=== PATIENT | male | born 1945 | race Caucasian/White ===

== ENCOUNTER 2022-08-26 09:39 | Outpatient (CLI) | payer MEDICARE, SELFPAY ==
[2022-08-26 21:53] LABS: Albumin* 4.2 g/dL (3.3-5.0); Chloride* 102 mmol/L (96-114)
[2022-08-26 21:54] LABS: Sodium* 138 mmol/L (135-149)
[2022-08-26 21:56] LABS: Amylase* 45 U/L (18-89); Aspartate Amino Transferase* 22 U/L (12-35); Bilirubin Total* 0.7 mg/dL (0.1-1.5); Carbon Dioxide* 30 mmol/L (20-32)
[2022-08-26 21:57] LABS: Alanine Aminotransferase* 18 U/L (4-50); Alkaline Phosphatase* 66 U/L (40-150); Blood Urea Nitrogen* 18 mg/dL (7-30); Calcium* 10.2 mg/dL (8.4-10.6); Glucose* 100 mg/dL (60-115); Lipase* 133 U/L (23-300)
[2022-08-26 22:12] LABS: Creatinine* 0.7 mg/dL (0.5-1.5); Estimated Glomerular Filt Rate 95 ml/min
== END 2022-08-26 09:40 | disposition home or self-care (01) ==
PROVIDERS: PCP Family Medicine; Visit Provider Family Medicine
DX: R10.9 Unspecified abdominal pain (principal); I10 Essential (primary) hypertension; R73.09 Other abnormal glucose
CPT/HCPCS: 80053; 82150; 83516; 83690

== ENCOUNTER 2023-02-01 09:05 | Outpatient (CLI) | payer MEDICARE, SELFPAY | END 2023-02-01 09:06 | disposition home or self-care (01) | LOC: NFLDREF 02-02 06:18 | PROVIDERS: PCP Family Medicine; Referring Provider Family Medicine; Visit Provider Family Medicine | DX: C61 Malignant neoplasm of prostate (principal); I10 Essential (primary) hypertension; N52.9 Male erectile dysfunction, unspecified; R53.83 Other fatigue; R68.2 Dry mouth, unspecified; R73.03 Prediabetes | CPT/HCPCS: 80053; 80061; 84443 ==

== ENCOUNTER 2023-04-15 10:11 | Outpatient (CLI) | payer MEDICARE, SELFPAY | END 2023-04-15 10:12 | disposition home or self-care (01) | LOC: LKVREF 10:16 | PROVIDERS: PCP Family Medicine; Visit Provider Family Medicine | DX: Z01.818 Encounter for other preprocedural examination (principal) | CPT/HCPCS: 80048 ==

== ENCOUNTER 2024-01-27 13:53 | Outpatient (CLI) | payer MEDICARE, SELFPAY ==
--- OUTSIDE RECORDS SUMMARY | 2024-01-29 07:37 | XMS_ITS ---
Author Organization [facility] Address [address] [place] [address] Care Team Providers Care Miniature Set Constructor Name Role Phone Milan Aguiar MD Primary Care Provider [phone] Active Problems Problem Noted Date Diagnosed Date Kidney stone 03/25/2023 Overview: Added automatically from request for surgery [id number] Benign prostatic hyperplasia with lower urinary tract symptoms 02/03/2021 Overview: Added automatically from request for surgery [id number] Urethral stone 02/03/2021 Overview: Added automatically from request for surgery [id number] Prostate cancer 01/15/2021 Lateral epicondylitis 02/05/2011 Overview: Lateral epicondylitis of elbow Current Oncology Plans No current plan information found. Past Plans SUPPORTIVE CARE Plan Name Start Date Discontinue Date Treatment Medications Discontinue Reason Plan Provider Cycles LEUPROLIDE DEPOT (84D:1) 1 12/28/2021 alteplase (CATHFLO ACTIVASE)hepar inleuprolide (3 month) (LUPRON DEPOT)sodium chloride 0.9% Therapy Complete Piero Castro, KAYLAH 4 of 8 cycles started LEUPROLIDE DEPOT (168D) 1 01/22/2021 leuprolide (6 month) (LUPRON DEPOT) Other Piero Castro, KAYLAH Treatment not started Radiation Treatments * No radiation treatments are documented for this patient in [facility]. Treatments may have been administered in another system.
--- OUTSIDE RECORDS SUMMARY | 2024-01-29 07:37 | XMS_ITS | Encounter Summary ---
Author Organization [facility] Address [address] [place] [address] Care Team Providers Care Form Setter Helper Name Role Phone Milan Aguiar MD Primary Care Provider [phone] Encounter Details Date Type Department Care Team (Late st Contact Info) Description 01/11/2024 E-Visit [facility] Nutrition [address] [place], [place] [id number] [place] [address] Social History Tobacco Use Types Packs/Day Years Used Date Smoking Tobacco: Former Cigarettes Q uit: 2005 Alcohol Use Standard Drinks/Week Comments Yes 1 (1 standard drink = 0.6 oz pur e alcohol) 2 monthly Sex and Gender Information Value Date Recorded Sex Assigned at Not on file Gender Identity Not on file Sexual Orientation Not on file documented as of this encounter Plan of Treatment Not on file documented as of this encounter Visit Diagnoses Not on filedocumented in this encounter Care Teams Form Setter Helper Relationship Specialty Start Date End Date Milan Aguiar MD [address] [place] [address] PCP - General Family Practice 05/02/23 documented as of this encounter
--- OUTSIDE RECORDS SUMMARY | 2024-01-29 07:37 | XMS_ITS | Encounter Summary ---
Author Organization [facility] Address [address] [place] [address] Care Team Providers Care Supervisor Core Drilling Name Role Phone Milan Aguiar MD Primary Care Provider [phone] Encounter Details Date Type Department Care Team (Late st Contact Info) Description 01/17/2024 E-Visit [facility] Nutrition [address] [place], [place] [id number] [place] [address] Social History Tobacco Use Types Packs/Day Years [...] on filedocumented in this encounter Care Teams Supervisor Core Drilling Relationship Specialty Start Date End Date Milan Aguiar MD [address] [place] [address] PCP - General Family Practice 05/02/23 documented as of this encounter
--- OUTSIDE RECORDS SUMMARY | 2024-01-29 07:37 | XMS_ITS | Clinical Summary ---
Author Organization [facility] Address [address] [place] [address] Care Team Providers Care Technical Clerk Name Role Phone Milan Aguiar MD Primary Care Provider [phone] Source Comments You are receiving this document as you are listed as the primary care provider,follow-up provider, or the patient has been referred to you for consultation.This is in compliance with the Medicare and[facility] E[facility] Incentive [facility],which states Providers who transition their patient to another setting of careor provider of care or refers their patient to another provider of care shouldprovide summary care record for each transition of care or referral. [facility] Allergies No known active allergies Medications Medication Sig Dispensed Refills Start Date End Date Status multivitamin with minerals tablet Take 1 Tablet by mouth daily. Active cholecalciferol (VITAMIND3) 50 MCG (2000 UT) tablet Take 1 Tablet (2,000 Units) by mouth daily. Active hydroCHLOROthiazide (ORETIC) 25 MG tablet TAKE ONE TABLET BY MOUTH ONE TIME DAILY 90 Tablet 3 08/12/2022 Active oxyCODONE (ROXICODONE) 5 MG immediate release tablet Take 1 Tablet (5 mg) by mouth every 4 hours as needed for Pain. 10 Tablet 05/05/2023 Active Active Problems Problem Noted Date Diagnosed Date Kidney stone 03/25/2023 Overview: Added automatically from request for surgery [id number] Benign prostatic hyperplasia with lower urinary tract symptoms 02/03/2021 Overview: Added automatically from request for surgery [id number] Urethral stone 02/03/2021 Overview: Added automatically from request for surgery [id number] Prostate cancer 01/15/2021 Lateral epicondylitis 02/05/2011 Overview: Lateral epicondylitis of elbow Encounters Date Type Department Care Team Description 01/17/2024 7:30 AM CDT Telemedicine [facility] Nutrition [address] [place] [address] Allyssa Lawson RDN, LD Nutritional counseling (Primary Dx); Prostate cancer (HRC) 01/17/2024 E-Visit [facility] Nutrition [address] [place] [address] Mychart, Generic Provider 01/11/2024 E-Visit [facility] Nutrition [address] [place] [address] Mychart, Generic Provider 01/05/2024 9:30 AM CDT Telemedicine [facility] Oncology [address] [place] [address] Piero Castro MBBS Prostate cancer (HRC) (Primary Dx); History of cytopenia 01/02/2024 8:00 AM CDT Lab Visit [facility] [address] [place] [phone] Kidney stone (Primary Dx); Hypercalciuria; Prostate cancer (HRC) 12/21/2023 Telephone [facility] - Urology [address] [facility] [place] [address] Aleksandra Richey MD Follow-up, NOS 11/14/2023 10:10 AM CDT Ancillary Procedure [facility] [address] Radiology [address] [place] [address] Erin Brown APRN, CNP Kidney stone 11/14/2023 9:45 AM CDT Office Visit [facility] [address] [address]rology [address] [place] [address] Erin Brown APRN, CNP Kidney stone (Primary Dx); Hypercalciuria from Last 3 Months Family History Medical History Relation Name Comments Cancer, Prostate Father Cancer, Prostate Paternal Grandmother Relation Name Status Comments Father Paternal Grandmother Social History Tobacco Use Types Packs/Day Years Used Date Smoking Tobacco: Former Cigarettes Q uit: 2004 Tobacco Cessation:Counseling Given: Not Answered Alcohol Use Standard Drinks/Week Comments Yes 1 (1 standard drink = 0.6 oz pur e alcohol) 2 monthly Sex and Gender Information Value Date Recorded Sex Assigned at Not on file Gender Identity Not on file Sexual Orientation Not on file Last Filed Vital Signs Vital Sign Reading Time Taken Comments Blood Pressure 136/81 09/09/2023 10:59 AM PATCHER HELPER Pulse 70 09/09/2023 10:59 AM PATCHER HELPER Temperature 36.4 ??C (97.6 ??F) 09/09/2023 1 0:59 AM PATCHER HELPER Respiratory Rate 13 05/02/2023 4:30 PM CDT Oxygen Saturation 95% 05/02/2023 5:0 0 PM CDT Inhaled Oxygen Concentration - - Weight 79.4 kg (175 lb) 01/17/2024 8:16 AM CDT wt taken at home today Height 180.3 cm (5' 10.98) 05/02/2023 11:55 AM CDT Body Mass Index 24.42 05/02/2023 11:55 AM CDT Plan of Treatment Health Maintenance Due Date Last Done Comments Hep C Screening (Preventive Services) 1945 Medicare Annual Wellness Visit 1945 COVID-19 Vaccine ( season) 2023 11/27/2021, 04/27/2021, 09/16/2020, Additional history exists Influenza (#1) 2024 07/02/2021, 05/08/2019 DTaP/Tdap/Td (3 - Tdap) 12/02/2031 12/01/2021, 05/21 HepA Aged Out 06/14/2012 No longer eligi ble based on patient's age to complete this topic Pneumococcal 65+ Yrs Completed 11/11/2015, 08/27/19 15 Zoster/Shingles Completed 05/08/2019, 08/2018, 09/27/2013 HepB Aged Out No longer eligi ble based on patient's age to complete this topic Hib Aged Out No longer eligi ble based on patient's age to complete this topic IPV (Polio) Aged Out No longer eligi ble based on patient's age to complete this topic MCV4 Aged Out No longer eligi ble based on patient's age to complete this topic Medical Devices Implanted Type Area Minister Device Identifier Shelf Expiration Date Model / Serial / Lot Stent Ureteral Inlay 6fr 28cm - [id number] Implanted:Qty: 1 on 05/02/2023 by Aleksandra Richey MD at [facility] DEVICE Left: [employer] 09/06/2027 [id number] / / [id number] Description:URETERAL STENT Procedures Procedure Name Priority Date/Time Associated Diagnosis Comments URINE CONTAINER, 24 HOUR Routine 01/02/2024 11:16 AM CDT Kidney stone Hypercalciuria CONTAINER TEST Routine 01/02/2024 11:16 AM CDT Kidney stone Hypercalciuria COMPLETE BLOOD COUNT-W/DIFF STAT 01/02/2024 7:56 AM CDT Prostate cancer (HRC) PROSTATIC SPECIFIC ANTIGEN (DIAGNOSTIC F/U) STAT 01/02/2024 7:56 AM CDT Prostate cancer (HRC) CBC AND DIFFERENTIAL PANEL STAT 01/02/2024 7:56 AM CDT Prostate cancer (HRC) XR ABD FLAT/KUB 1 VIEW Routine 11/14/2023 10:21 AM CDT Kidney stone from Last 3 Months Results * Urine Container, 24 Hour (01/02/2024 11:16 AM CDT) Container Given Done 01/02/2024 1:00 PM [facility] Other Specimen Type 01/02/2024 11:16 AM CDT 01/02/2024 11:16 AM CDT Erin Brown APRN, CNP LAB_1 [facility] [address] [place] [address], [facility] * (ABNORMAL) Complete Blood Count-W/Diff (01/02/2024 7:56 AM CDT) WBC 4.3 3.5 - 10.5 x10(9)/L 01/02/2024 8:05 AM [facility] RBC 5.17 4.32 - 5.72 x10(12)/L 01/02/2024 8:05 AM [facility] Hemoglobin 15.4 13.5 - 17.5 g/dL 01/02/2024 8:05 AM [facility] HCT 46.9 38.8 - 50.0 % 01/02/2024 8:05 AM [facility] MCV 90.7 80.0 - 100.0 fL 01/02/2024 8:05 AM [facility] MCH 29.8 27.6 - 33.3 pg 01/02/2024 8:05 AM [facility] MCHC 32.8 31.5 - 35.2 g/dL 01/02/2024 8:05 AM [facility] RDW 13.6 11.9 - 15.5 % 01/02/2024 8:05 AM [facility] Platelets 166 150 - 450 x10(9)/L 01/02/2024 8:05 AM [facility] Automated NRBC 0 <=0 /100 WBC 01/02/2024 8:05 AM [facility] Neutrophil Absolute 2.9 1.7 - 7.0 10(9)/L 01/02/2024 8:05 AM [facility] Lymphocyte Absolute 0.8(L) 1.0 - 4.8 10(9)/L 01/02/2024 8:05 AM [facility] Monocyte Absolute 0.4 0.2 - 0.9 10(9)/L 01/02/2024 8:05 AM CDT [facility] Eosinophil Absolute 0.1 0.0 - 0.5 10(9)/L 01/02/2024 8:05 AM CDT [facility] Basophil Absolute 0.0 0.0 - 0.3 10(9)/L 01/02/2024 8:05 AM CDT [facility] Immature Granulocyte % 0.2 0.0 - 0.5 % 01/02/2024 8:05 AM CDT [facility] Blood Venipuncture / Unknown 01/02/2024 7:56 AM CDT 01/02/2024 7:59 AM CDT Piero Adela Castro [facility] LAB_1 Performing Organization Address [facility]/ZIP Co de Phone Number [facility] [address] [place] [address] * Prostatic Specific Antigen (Diagnostic F/U) (01/02/2024 7:56 AM CDT) Prostatic Specific Antigen 0.6 0.0 - 4.0 ng/mL 01/02/2024 3:07 PM CDT [facility] Blood Venipuncture / Unknown 01/02/2024 7:56 AM CDT 01/02/2024 7:59 AM CDT Narrative [facility] - 01/02/2024 3:07 PM CDT The [employer] PSA Chemiluminescent immunoassay is used. Results obtained with different test methods or kits cannot be used interchangeably. Piero Castro [facility]_1 Performing Organization Address City/[facility]/ZIP Co de Phone Number [facility] [address] [place] [address], [facility] * XR Abd Flat/KUB 1 View (11/14/2023 10:21 AM CDT) Anatomical Region Laterality Modality Abdomen Digital Radiogra phy 11/14/2023 10:1 5 AM CDT Impressions 11/14/2023 11:21 AM CDT COMPARISON: ??05/10/2023 FINDINGS: ??No renal or ureteral calculus is identified although small calculi could be obscured by overlying colonic stool. Unchanged pelvic phleboliths. Nonobstructive bowel gas pattern. Moderate to large volume of colonic stool. Narrative Procedure Note Rashad العراقي MD - 11/14/2023 IMPRESSION COMPARISON: 05/10/2023 FINDINGS: No renal or ureteral calculus is identified although smallcalculi could be obscured by overlying colonic stool. Unchanged pelvicphleboliths. Nonobstructive bowel gas pattern. Moderate to large volume ofcolonic stool. Erin Brown APRN, DEPARTMENT EDITOR RAD GD from Last 3 Months Advance Directives * Full Code (Latest Code Status on File) Date Activated Date Inactivated Comments 03/16/2021 1:12 PM 03/17/2021 4:00 PM Care Teams Technical Clerk Relationship Specialty Start Date End Date Milan Aguiar MD [address] [place] [address] PCP - General Family Practice 05/02/23
--- OUTSIDE RECORDS SUMMARY | 2024-01-29 07:37 | XMS_ITS | Encounter Summary ---
Author Organization [facility] Address [address] [place] [address] Care Team Providers Care Clam Grader Name Role Phone Thierry Pearce MD Primary Care Provide r Thierry Pearce MD Unavailable Reason for Visit * Reason Onset Date Comments Forms 12/02/2017 Encounter Details Date Type Department Care Team (Late st Contact Info) Description 12/02/2017 Telephone [facility] [address] [place] [address] Thierry Pearce MD [address] , [id number] [place] [address] [phone] Forms Social History Tobacco Use Types Packs/Day Years Used Date Smoking Tobacco: Former Cigarettes Smokeless Tobacco: Never Alcohol Use Standard Drinks/Week Comments Yes 5.8 (1 standard drink = 0.6 oz p ure alcohol) Sex and Gender Information Value Date Recorded Sex Assigned at Not on file Gender Identity Not on file Sexual Orientation Not on file documented as of this encounter Miscellaneous Notes * Telephone Encounter - Thierry Pearce MD - 12/02/2017 11:30 AM CDT done * Telephone Encounter - Risa Salinas CMA - 12/02/2017 11:19 AM CDT We received some forms from [facility] in [place] for PT initial examination that need vineet reviewed, signed, and faxed back. They are in your pod, please review. Thank you documented in this encounter Plan of Treatment Not on file documented as of this encounter Visit Diagnoses Not on filedocumented in this encounter Additional Health Concerns Infection Onset Date Last Indicated Resolved Time Rule Out COVID-19 01/10/2020 01/10/2020 01/11/2020 7:25 PM CDT documented as of this encounter Care Teams Clam Grader Relationship Specialty Start Date End Date Thierry Pearce MD [address] , [address] [address] PCP - General Family Practice 01/23/16 Thierry Pearce MD [address], [address] [address] Assigned PCP 01/25/16 documented as of this encounter
--- OUTSIDE RECORDS SUMMARY | 2024-01-29 07:37 | XMS_ITS | Continuity of Care Document ---
Author Organization [facility] Address [address] [address] [place] [address] Phone Care Team Providers Care Practice Representative Name Role Phone Benjamin Gaspar MD Unavailable Unavailable Allergies, Adverse Reactions, Alerts Substance Reaction Status Criticality No Known Allergies Active No Inform ation Medications Medication Instructions Dosage Effective Dates (start - stop) Status Comments hydrochlorothiazide 25 mg tablet take 1 tablet by oral route every day 25 MG - Active VITAMIN D3 (unknown strength) take by Oral route every for 1 day Not Available - Active Multivitamin unknown Oral - Active Procedures Procedure Date Offic/outpt E&m Estab Mod-hi 2 24 Biofeedback Biofeedback Each Add 15 Min Biofeedback Biofeedback Each Add 15 Min Biofeedback Biofeedback Each Add 15 Min Offic/outpt E&m Estab Low-mod Anorectal Manometry Rectal Sensation Test Colonoscopy Flex; W/remov Les- 24 Colonoscopy Flex; W/bx 1/mx Level Iv-surg Path Gross/micro 24 cancelled appt Offic/outpt E&m Estab Mod-hi 2 24 Established Level 4 Offic/outpt E&m Estab Low-mod 3 Offic/outpt E&m Estab Mod-hi 2 23 Colonoscopy Flex; W/remov Les- 20 Level Iv-surg Path Gross/micro 20 Ugi Endo; W/bx 1/mx Level Iv-surg Path Gross/micro 18 Offic/outpt E&m Estab Low-mod 8 Offic/outpt E&m Estab Mod-hi 2 18 Adenoma(s), Other Neoplasm Detected Duri ng Screen Colonoscopy Flex; W/remov Les- 17 Colonoscopy Flex; W/bx 1/mx Level Iv-surg Path Gross/micro 17 Colonoscopy Flex; W/remov Les- 15 Colonoscopy Flex; W/bx 1/mx Level Iv-surg Path Gross/micro 15 Advance Directives Directive Yes / No Effective Date File Name No Information Encounters Encounter Description Practice Location Reason(s) For Visit Diagnoses Date Provider Providers Copied on Encounter [facility], [address] [address], [place], [id number], [place] tel:[phone] [facility] Dyssynergic defecation 4 Hubert Alexander. [address] [place] [address], [id number], [place]. tel:[phone] Offic/outpt E&m Estab Mod-hi 2 [facility], [address] [address], [place], [id number], [place] tel:[phone] [facility] Previous History Review (chief complaint) Comment (chief complaint) Dyssynergic defecation 4 Hubert Alexander. [address] [place] [address], [id number], [place]. tel:[phone] Referring Provider: Referral Self, USE FOR SELF REFERRALS. [facility], [address] [address], [place], [id number], [place] tel:[phone] [facility] Other constipation Apr-0 4 Decelles PA Nallely. [address] [facility], [place], [place], [id number], [place]. tel:[phone] Referring Provider: Referral Self, USE FOR SELF REFERRALS. [facility], [address] [address], [place], [id number], [place] tel:[phone] [facility] Oth symptoms and signs involving the dgstv sys and abdomen 4 Decelles PA Nallely. [address] [facility], [place] [address], [place], [id number], [place]. tel:[phone] Referring Provider: Referral Self, USE FOR SELF REFERRALS. [facility], [address] [address], [place], [id number], [place] tel:[phone] [facility] Ot symptoms and signs involving the dgstv sys and abdomen 4 Decelles PA Nallely. [address] [facility], [place] [address], [place], [id number], [place]. tel:[phone] Referring Provider: Referral Self, USE FOR SELF REFERRALS. Offic/outpt E&m Estab Low-mod [facility], [address] [address], [place], [id number], [place] tel:[phone] [facility] GI Symptoms or Concerns (chief complaint) Chronic constipationDyss ynergic defecation 4 Decelles PA Nallely. [address] [facility], [place], [place], [id number], [place]. tel:[phone] Referring Provider: Referral Self, USE FOR SELF REFERRALS. [facility], [address] [address], [place], [id number], [place] tel:[phone] [facility] Ot symptoms and signs involving the dgstv sys and abdomen Aug- 4 Mc Morales. [address] [facility], [place] [address], [place], [id number], [place]. tel:[phone] Referring Provider: Referral Self, USE FOR SELF REFERRALS. [facility], [address] [address], [place], [id number], [place] tel:[phone] [facility] Colorectal polyp detected on colonoscopyHemor rhoids, internalConstipa tion, unspecifiedBenig n neoplasm of ascending colonBenign neoplasm of transverse colon 4 Eber Aguilar. [address] [place] [address], [id number], [place]. tel:[phone] Referring Provider: Referral Self, USE FOR SELF REFERRALS. [facility], [address] [address], [place], [id number], [place] tel:[phone] [facility] GI Symptoms or Concerns (chief complaint) No Information 4 Hubert Alexander. [address] [place] [address], [id number], [place]. tel:[phone] Referring Provider: Referral Self, USE FOR SELF REFERRALS. Offic/outpt E&m Estab Mod-hi 2 [facility], [address] [address], [place], [place], [id number], [place] tel:[phone] [facility] GI Symptoms or Concerns (chief complaint) Change in bowel habitUnspecified constipationHist ory of adenomatous polyp of colon 4 Hubert Alexander. [address] [place] [address], [id number], [place]. tel:[phone] Referring Provider: Referral Self, USE FOR SELF REFERRALS. Established Level 4 [facility], [address] [address], [place], [id number], [place] tel:[phone] [facility] GI Symptoms or Concerns (chief complaint) Chronic constipation 3 Daniela Patel. [address] [place] [address], [address], [id number], [place]. tel:[phone] Referring Provider: Referral Self, USE FOR SELF REFERRALS. [facility], [address] [address], [place], [id number], [place] tel:[phone] [facility] No Information 3 Alfredo Bernstein. [address] [facility], [address], [id number], [place]. tel:[phone] Offic/outpt E&m Estab Low-mod [facility], [address] [address], [place], [place], [id number], [place] tel:[phone] [facility] GI Symptoms or Concerns (chief complaint) Chronic constipationIrre gular bowel habits 3 Dec[place] HALIE Browning. [address] [facility], [facility] [address], [place], [id number], [place]. tel:[phone] Referring Provider: Referral Self, USE FOR SELF REFERRALS. Offic/outpt E&m Estab Mod-hi 2 [facility], [address] [address], [place], [place], [id number], [place] tel:[phone] [facility] GI Symptoms or Concerns (chief complaint) Periumbilical abdominal pain Feb-0 3 Hubert Alexander. [address] [facility], [address], [id number], [place]. tel:[phone] Referring Provider: Referral Self, USE FOR SELF REFERRALS. [facility], [address] [address], [place], [place], [id number], [place] tel:[phone] No Information 0 3 No Information Referring Provider: Milan Aguiar MD, [address] [place] [address], [address]. tel:[phone] [facility], [address] [address], [place], [place], [id number], [place] tel:[phone] [facility] Colorectal polyp detected on colonoscopyHemor attila internalEncmarcelae r for screening for malignant neoplasm of colonBenign neoplasm of ascending colon 0 Eber Aguilar. [address] [facility], [address], [id number], [place]. tel:[phone] Referring Provider: Thierry taylor, [address], [place], [address]. tel:[phone] [facility], [address] [address], [place], [place], [id number], [place] tel:[phone] [facility] No Information 0 Eber Aguilar. [address] [place] [address], [address], [id number], [place]. tel:[phone] [facility], [address] [address], [place], [place], [id number], [place] tel:[phone] [facility] Epigastric painGERD with esophagitisGastr o-esophageal reflux disease with esophagitisEpiga stric pain Dec-0 8 Eber Aguilar. [address] [place] [address], [address], [id number], [place]. tel:[phone] Referring Provider: Referral Self, USE FOR SELF REFERRALS. Offic/outpt E&m Estab Low-mod [facility], [address] [address], [place], [place], [id number], [place] tel:[phone] [facility] GI Symptoms or Concerns (chief complaint) Epigastric painDietary counseling and surveillance Sep-2 8 Eber Aguilar. [address] [facility], [address], [id number], [place]. tel:[phone] Referring Provider: Referral Self, USE FOR SELF REFERRALS. Offic/outpt E&m Estab Mod-hi 2 [facility], [address] [address], [place], [place], [id number], [place] tel:[phone] [facility] GI Symptoms or Concerns (chief complaint) Lower abdominal pain November-3 8 Ellen King. [address] [facility], [facility] [address], [place], [place], [id number], [place]. tel:[phone] Referring Provider: Thierry Pearce MD, [address], [place], [address]. tel:[phone] [facility], [address] [address], [place], [id number], tel:[phone] [facility] Polyp of colonDiverticulo sis of colon without diverticulitisIn ternal hemorrhoidEncoun ter for screening for malignant neoplasm of colonPersonal history of colonic polypsBenign neoplasm of ascending colonBenign neoplasm of rectumBenign neoplasm of rectumBenign neoplasm of ascending colonPersonal history of colonic polyps 7 Eber Aguilar. [address], [id number], . tel:[phone] Referring Provider: Referral Self, USE FOR SELF REFERRALS. [facility], [address] [address], [place], [id number], tel:[phone] [facility] Right lower quadrant painColon polypInternal hemorrhoidChange in bowel habitBenign neoplasm of ascending colonOther hemorrhoidsRight lower quadrant painBenign neoplasm of ascending colon 5 Eber Aguilar. [address] [facility] [address], [place], [id number], [place]. tel:[phone] Referring Provider: Woody Loo MD, [address], [address]. tel:[phone] Family History Family Member Type Diagnosis Age At Onset Mother Problem (finding) Daughter Problem (finding) Crohn's disease Father Problem (finding) prostate cancer Son Problem (finding) Alive and well Sister Problem (finding) Cancer, lung Daughter Problem (finding) Alive and well Father Problem (finding) malignant neoplasm of l yariel Sister Problem (finding) Alive and well Father Problem (finding) Colon polyps Immunizations Vaccine Date Status Comments tetanus toxoid, reduced diphtheria toxoid, and acellular pertussis vaccine, adsorbed administered Note: CARMEN tejeda i-directional interface ; Source: Other Registry SARS-COV-2 (COVID-19) vaccin e, mRNA, spike protein, LNP, preservative free, 30 mcg/0.3mL dose, conner-sucrose formulation administered Note: JAH Thurston bi- directional interface ; Source: Other Registry influenza, high-dose seasona l, quadrivalent, 0.7mL dose, preservative free administered Note: [facility] bi-direct ional interface ; Source: Other Registry influenza, high-dose seasona l, quadrivalent, .7mL dose, preservative free administered Note: [facility] bi-direct ional interface ; Source: Other Registry SARS-COV-2 (COVID-19) vaccin e, mRNA, spike protein, LNP, preservative free, 30 mcg/0.3mL dose administered Note: [facility] bi-direct ional interface ; Source: Other Registry SARS-COV-2 (COVID-19) vaccin e, mRNA, spike protein, LNP, preservative free, 30 mcg/0.3mL dose administered Note: [facility] bi-direct ional interface ; Source: Other Registry SARS-COV-2 (COVID-19) vaccin e, mRNA, spike protein, LNP, preservative free, 30 mcg/0.3mL dose administered Note: [facility] bi-direct ional interface ; Source: Other Registry influenza, high dose seasona l, preservative-free administered Note: [facility] bi-direct ional interface ; Source: Other Registry zoster vaccine recombinant administered N ote: [facility] bi-directional interface ; Source: Other Registry zoster vaccine recombinant administered N ote: [facility] bi-directional interface ; Source: Other Registry Pneumovax 23 administered Note: [facility] bi-d irectional interface ; Source: Other Registry Prevnar 13 administered Note: [facility] bi-d irectional interface ; Source: Other Registry zoster vaccine, live administered Note: [facility] bi-directional interface ; Source: Other Registry Havrix administered Note: [facility] bi-d irectional interface ; Source: Other Registry tetanus toxoid, reduced diphtheria toxoid, and acellular pertussis vaccine, adsorbed administered Note: [facility] b i-directional interface ; Source: Other Registry Payers Payer name Insurance type Covered republican ID Authoriza tion(s) Blue [employer] Medicare Advantage [id number] Social History Type Description Quantity Date Captured Comments Alcohol Use Details Unknown Caffeine Use Details Unknown Tobacco Use Status No Information Smoking Status No Information Sex Male Chief Complaint And Reason For Visit No Information Reason For Referral Reason For Referral No Information Plan Of Treatment Date Type Action Status Goal Lifestyle education regardin g diet completed Referral Ordered: Biofeedback Appointment date/timeframe: First Available ordered Referral Ordered: Anorectal manometry Appointment date/timeframe: 09/22/2023 ordered Referral Ordered: EGD Appointment date/timeframe: 06/29/2018 ordered History Of Present Illness Encounter Date Complaint History Of Prese nt Illness Previous History Review Javier jewell a pleasant 78-year-old male presents for evaluation of constipation. In review, patient has been dealing with consiptaion over the last six months. He previously was doing well on increasing psyllium, water, and exercise. He also tried acupuncture which seemed to help significantly. To evaluate his change in bowel habits, he underwent a colonoscopy on 08/19/2023 which revealed multiple colon polyps and internal hemorrhoids. Biopsies revealed one sessile serrated adenoma, four tubular adenomas, two hyperplastic polyps. It was recommended he repeat a colonoscopy in 3 years. Patient then underwent anorectal manometry which revealed abnormal anorectal manometry. 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 Resting and squeeze pressures were normal and rectal sensation was normal. Biofeedback was recommended. He has a history of small bowel obstruction requiring surgery, history of prostate cancer and radiation, and appendectomy. Previous abdominal x-ray showed excessive stool throughout the colon. Comment This is a 78-yea r-old male with a history of pelvic floor dysfunction, constipation. He has been undergoing biofeedback that has been improving his bowel movements, but he does not quite get it yet. He can sense the relaxation of the anal sphincter somewhat, but not very well yet. He continues on MiraLax once a day. With this, he is having typically bowel movements once per day. Sometimes, he will feel like he has incomplete bowel movements and might have up to 3 bowel movements on that day. He wonders about stopping the MiraLax. Continues to have a lot of gas. He intermittently gets abdominal discomfort. Taking the peppermint helps a little bit. He continues on a high-fiber diet. If he does get abdominal discomfort, having a bowel movement or passing flatus helps. GI Symptoms or Concerns Javier cronin s a pleasant 77-year-old male presents for evaluation of constipation. In review, patient has been dealing with consiptaion over the last six months. He previously was doing well on increasing psyllium, water, and exercise. He also tried acupuncture which seemed to help significantly. He reports having to strain a lot to have a bowel movement. He was also having a lot of foul-smelling gas. In May, he started having pencil thin stools and a sensation of stool in his rectum that was not evacuating. He tried Dulcolax, MiraLax, and senna which each helped a little bit. In June he was doing better and having regular bowel movements, but again developed problems with constipation. To evaluate his change in bowel habits, he underwent a colonoscopy on 08/19/2023 which revealed multiple colon polyps and internal hemorrhoids. Biopsies revealed one sessile serrated adenoma, four tubular adenomas, two hyperplastic polyps. It was recommended he repeat a colonoscopy in 3 years. Patient then underwent anorectal manometry which revealed abnormal anorectal manometry. 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 Resting and squeeze pressures were normal and rectal sensation was normal. Biofeedback was recommended. He has a history of small bowel obstruction requiring surgery, history of prostate cancer and radiation, and appendectomy. Previous abdominal x-ray showed excessive stool throughout the colon. GI Symptoms or Concerns GI Symptoms or Concerns This is a 77-year-old male with a history of adenomatous colon polyps who has had a change in his bowel habits with relative constipation over the last 3 or 4 months. The patient had seen Dr. Suarez 06/30/2023. At that time, he was doing well on increasing psyllium, water, exercise. He had also had acupuncture and that seemed to help significantly.Previously, he was straining a lot with bowel movements, but still having regular bowel movements. He was having a lot of foul-smelling gas. Since May, he was having pencil thin stools and a sensation that stool in his rectum that he was not evacuating. He tried Dulcolax, MiraLax, senna, each helped a little bit. In May when he had acupuncture that seemed to help significantly the next day. In June when he was seeing Dr. Suarez, he was better, having regular bowel movements. But then he had issues with constipation more recently after that. He tried acupuncture again, which maybe helped a little, not much. GI Symptoms or Concerns This is a 77-year-old male with a past medical history of prostate cancer status post radiation, small-bowel obstruction undergoing surgical therapy likely secondary to adhesions in 2019, kidney stones, appendectomy at the age of [age] years old having large scar who comes in for follow up of constipation. This was a virtual appointment. Patient describes that since last appointment with 1 of our Advanced care providers he has completely normalized bowel movements with 1 bowel movement a day that is well formed with feeling of complete evacuation. Patient has done this with consuming significant amounts of water, psyllium supplementation, MiraLax every other day as well as acupuncture. Patient will also be attempting in the next few days to weeks myofascial massage over the scar where he is had previous appendectomy. Otherwise patient denies any other GI symptoms. GI Symptoms or Concerns Javier cronin s a pleasant 77-year-old male who presents for evaluation of constipation. Records reviewed for this visit include 05/02/2023 x-ray abdomen. In review, he was previously seen in August 2022 for intermittent periumbilical abdominal pain thought to possibly related to adhesions. It was recommended he trial IBGard or peppermint tea. His last colonoscopy was completed in 09/21/2019. Colonoscopy revealed internal hemorrhoids and one polyp. Polyp was a tubular adenoma negative for high-grade dysplasia. It was recommended he repeat a colonoscopy in 5 years.Recently on 05/02/2023 he had a preoperative X-ray completed prior to kidney stone removal. X-ray revealed a large amount of stool throughout the colon with a nonobstructive bowel gas pattern.Today he presents to discuss constipation. Over the last two months, he has noticed having to strain more often. He typically has a small hard bowel movement every day. He endorses sensation of incomplete emptying and decreased anorectal sensation. He feels like he is not effectively having a bowel movement. He visited with his primary care provider who told him to increase his water intake and start Metamucil. He had initial improvement on Metamucil, but after a few weeks reverted back to having harder bowel movements and needing to strain. He reports drinking plenty of fluids. He has also done a trial of daily MiraLax, which he did not find helpful at improving stool regularity. He denies any fever, chills, unintentional weight loss, hematochezia, melena, abdominal pain or decreased appetite. He has noticed an increase in gas. Past medical and surgical history is significant for prostate cancer s/p radiation therapy, kidney stones, small bowel obstruction requiring surgery, and appendectomy. Family history is significant for a daughter with Crohn's disease. No family history of colon cancer. GI Symptoms or Concerns This is a 76-year-old male with a history of appendectomy, small bowel obstruction requiring surgery, prostate cancer, who comes in for abdominal pain. He has had this pain intermittently for potentially over decades. This might last for a month or two and then go away for months and then potentially recur. This occurred recently. This was felt in the periumbilical area. This is an ache sensation that fluctuated. It might be there in the morning, better in the afternoon. It did not seem to change with eating or a bowel movement. The pain did not radiate. It was not associated with other symptoms.He has been having regularly formed bowel movements, occasionally loose. Typically, they are Nebo type 4, sometimes Nebo type 2 or 5. Typically, 2 bowel movements per day. No blood in the stools, no narrowed stools. No weight loss, no night sweats. Previously, he had seen Dr. Velázquez for these symptoms and was tried on MiraLax, which did not change his symptoms. When the GI Symptoms or Concerns Javier moy is a 72-year-old male with a history of advanced colon polyps and a history of greater than 10 years of intermittent periumbilical and epigastric abdominal pain. He has no clear triggers and he will have months where he is symptom free and then he will have spells lasting weeks or months where he will have essentially daily intermittent pain. Surgical history is significant for previous appendectomy with an open incision. It is also noteworthy that his daughter has Crohn's disease that is quite severe. He does have a history of rather significant diarrhea and abdominal pain in his 30s that did sort of wean with time. Today, he is feeling well with no acute symptoms. He has no fevers, chills, night sweats, or weight loss.He also notes frequent heartburn with no associated symptoms. He is a male over the age of 49 with frequent heartburn, but does not have a previous endoscopy that has ever been done. GI Symptoms or Concerns Mr. Darrikc guerin is here with abdominal pain of several years duration. The pain comes and goes, and can be present for a week or 2, and then go away for the same time. He is not bothered so much by the discomfort that he has to stop what he is doing. When he is distracted, he does not feel it. The ache is in a large area and probably focused just below the umbilicus. It does not seem to be related to any particular food or even the eating. He has tried a variety of different diets that have not made a difference. He has had 2 colonoscopies during this period that have shown only polyps. He also had a CT scan of the abdomen that is unremarkable. He otherwise feels healthy. He does note that his stools are a little different than they used to be. They are not quite as formed and regular. He is not sure that getting cleaned out for a colonoscopy changes his symptoms. Functional Status Date Functional Assessmen t No Information Instructions Date Instruction Additional Infor casey Pelvic Floor Dysfunction Related to Dyssynergic defecation Colon Polyps Related to Color ectal polyp detected on colonoscopy -- As we discussed i n the virtual clinic appointments you have completely optimized bowel movements therefore would not recommend any further diagnostic testing or any prescription for constipation at this time-- I would recommend continuing with the significant water intake, fiber intake to 20-30 grams of fiber a day with using psyllium supplementation, MiraLax once a day or every other day-- continue with lifestyle measures of substantial breakfast in the morning, hot beverage in the morning and exercise in the morning as that can help stimulate bowel motions-- other things that you can you you can increase MiraLax to twice a day. Can also use senna tablets [id number] 1-2 pills at night as a stimulant laxative. These will be 8.6 milligram tablets-- continue with acupuncture and it will be safe to consider myofascial scar massage-- we will follow up as needed as we discussed Related to Chronic constipation Constipation Bowel Cleanse (adul t) Related to Irregular bowel habits Colon Cancer Prevention Related to Colorectal polyp detected on colonoscopy Colon Polyps Related to Color ectal polyp detected on colonoscopy Hemorrhoids Related to Color ectal polyp detected on colonoscopy Lifestyle education regarding di et Related to Dietary counseling and surveillance Hemorrhoids Related to Colon polyp Colon Cancer Prevention Related to Colon polyp Colon Polyps Related to Colon polyp Assessments Type Assessment Date assessment Dyssynergic defecation 24 Patient Care Teams Name Effective Dates (start - stop) Status Members No Information
--- OUTSIDE RECORDS SUMMARY | 2024-01-29 07:37 | XMS_ITS | Encounter Summary ---
Author Organization [place] Address [address] [place] [address] Care Team Providers Care Tar Heater Name Role Phone Thierry Pearce MD Primary Care Provide r Thierry Pearce MD Unavailable [phone] Encounter Details Date Type Department Care Team (Late st Contact Info) Description 12/07/2021 [facility] [address] [address] Debi Larsen Social History Tobacco Use Types Packs/Day Years Used Date Smoking Tobacco: Former Cigarettes Smokeless Tobacco: Never Alcohol Use Standard Drinks/Week Comments Yes 5.8 (1 standard drink = 0.6 oz p ure alcohol) AUDIT-C Answer Date Recorded Q1: How often do you have a drink containing alc ohol? 2-3 times a week 10/21/2020 Q2: How many drinks containi ng alcohol do you have on a typical day when you are drinking? 1 or 2 10/21/2020 Q3: How often do you have si x or more drinks on one occasion? Never 10/21/2020 PHQ-2 Answer Date Recorded PHQ-2 Score 0 10/21/2020 Sex and Gender Information Value Date Recorded Sex Assigned at Not on file Gender Identity Not on file Sexual Orientation Not on file documented as of this encounter Plan of Treatment Not on file documented as of this encounter Visit Diagnoses Not on filedocumented in this encounter Care Teams Tar Heater Relationship Specialty Start Date End Date Thierry Pearce MD [address], [id number] [place] [address] PCP - General Family Practice 01/23/16 Thierry Pearce MD [address], [id number] [place] [address] Assigned PCP 01/25/16 documented as of this encounter
--- OUTSIDE RECORDS SUMMARY | 2024-01-29 07:37 | XMS_ITS | Encounter Summary ---
Author Organization [place] Address [address] [place] [address] Care Team Providers Care School Guidance Counselor Name Role Phone Woody Loo MD Primary Care Provider Marzena vailable Thierry Pearce MD Primary Care Provide r Thierry Pearce MD Unavailable [phone] Encounter Details Date Type Department Care Team (Late st Contact Info) Description 07/12/2011 My[facility] Medical Advice [facility] [address] [place] [address] Woody Loo MD XXXX RESIGNED/INACTIVE XXXX Social History Tobacco Use Types Packs/Day Years Used Date Smoking Tobacco: Former Cigarettes Smokeless Tobacco: Never Comments:2 years ago Alcohol Use Standard Drinks/Week Comments Yes 5.8 (1 standard drink = 0.6 oz p ure alcohol) social Sex and Gender Information Value Date Recorded [...] documented as of this encounter Care Teams School Guidance Counselor Relationship Specialty Start Date End Date Woody Loo MD XXXX RESIGNED/INACTIVE XXXX PCP - General 08/07/9901/21 Thierry Pearce MD [address], [id number] [place] [address] PCP - General Family Practice 01/23/16 Thierry Pearce MD [address], [id number] [place] [address] Assigned PCP 01/25/16 documented as of this encounter
--- OUTSIDE RECORDS SUMMARY | 2024-01-29 07:37 | XMS_ITS | Encounter Summary ---
Author Organization [place] Address [address] [place] [address] Care Team Providers Care Warehouse Worker Name Role Phone Woody Loo MD Primary Care Provider Marzena vailable Thierry Pearce MD Primary Care Provide r Thierry Pearce MD Unavailable [phone] Encounter Details Date Type Department Care Team (Late st Contact Info) Description 10/06/2011 MyC Medical Advice [facility] [address] [place] [address] Debi Larsen Social History Tobacco Use Types [...] encounter Miscellaneous Notes * Telephone Encounter - Ly Lyman - 10/08/2011 1:32 PM CDT MY CHART message sent to patient to call & schedule his appt. * Telephone Encounter - Woody Loo MD - 10/08/2011 12:45 PM CDT Glad to help, will see if Ly has any input for me, but sounds like a good idea * Telephone Encounter - Lauren Bone - 10/06/2011 2:30 PM CDTFrom: ELIZABETH CARSON To: Woody Loo MD Sent: TueOct 06, 2011 2:18 PM Subject: Urologist Dear Dr. Loo, I seem to be having trouble finding an urologist. You recommended Dr Inocencio Duarte at the . of . However, when I called they said he only specialized in the reconstruction of ???.?? and they assigned me to Dr. Lee. On that appointment I visited with another young doctor (resident?) for a long time before Dr. Lee arrived, and my visit with him was very brief. Total appointment time was almost 3 hours, and the atmosphere was chaotic. So I???m not interesting in returning. 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 Alec Jean at [facility] () because he seems to understand PN and had referred a number of patients to Dr. Mccloud. Can you refer me to Dr. Jean? My history with is first with Dr. Andrews who I very much liked, then assigned to Dr. Hampton afterDr. Andrews retired. I Left Dr. Hampton, because he never explained anything, although I thought he was a good Dr. and then went to Dr. Bach, who resigned as my urologist because of my bad behavior. Regards, Selvin Carson documented in this encounter Plan of Treatment Not on file documented as of this encounter Visit Diagnoses Not on filedocumented in this encounter Additional Health Concerns Infection Onset Date Last Indicated Resolved Time Rule Out COVID-19 01/10/2020 01/10/2020 01/11/2020 7:25 PM CDT documented as of this encounter Care Teams Warehouse Worker Relationship Specialty Start Date End Date Woody Loo MD XXXX RESIGNED/INACTIVE XXXX PCP - General 08/07/9901/21 Thierry Pearce MD [address], [id number] [place] [address] PCP - General Family Practice 01/23/16 Thierry Pearce MD [address], [id number] [place] [address] Assigned PCP 01/25/16 documented as of this encounter
--- OUTSIDE RECORDS SUMMARY | 2024-01-29 07:37 | XMS_ITS | Continuity of Care Document ---
Author Organization [facility] Address [address] [place] [address] Phone Care Team Providers Care Furniture Fabricator Name Role Phone Dilip Gil MD Unavailable Unavailable Medications Medication Instructions Dosage Effective Dates (start - stop) Status Comments Aleve 220 mg Cap 2 tabs prn - Active amitriptyline 10 mg Tab TAKE ONE TABLET BY MOUTH AT BEDTIME FOR 5 DAYS INCREASE BY 1 TABLET EVERY 5 DAYS TO MAX OF 5 TABLETS DAILY. ADJUST DOSE DOWN IF BOTHERSOME - No Longer Active Procedures Procedure Date Est Pt Eval 15 Min Est Pt Eval 15 Min Motor NCV Without F-wav Heat Pain Quantitative se Smear Prim W/intrpt; Wet New Pt Eval 60 Min Advance Directives Directive Yes / No Effective Date File Name No Information Encounters Encounter Description Practice Location Reason(s) For Visit Diagnoses Date Provider Providers Copied on Encounter [facility], [address], [place], [place], [id number], [place] tel:[phone] [facility] No Information Louise Cherry. [address], [place], [id number], [place]. tel:[phone] Referring Provider: DERICK ROAS. [facility], [address], [place], [place], [id number], [place] tel:[phone] [facility] No Information Rogers Mclean. [address], [place] [place], [address], [place]. tel:[phone] Referring Provider: REFERRAL SELF, DERICK. Est Pt Eval 15 Min [facility], [address], [place], [place], [id number], [place] tel:[phone] [facility] No Information Rogers Mclean. [address], [place] [facility] [place] [place], [address], [place]. tel:[phone] Referring Provider: REFERRAL SELFDERICK. Est Pt Eval 15 Min [facility], [address], [place], [id number], [place] tel:[phone] [facility] No Information Rogers Mclean. [address], [place] [facility] [place] [place], [address], [place]. tel:[phone] Referring Provider: REFERRAL SELFDERICK. New Pt Eval 60 Min [facility], [address], [id number], tel:[phone] [facility] No Information Rogers Mclean. [address], [place] [place], [address], [place]. tel:[phone] Referring Provider: REFERRAL SELF, DERICK. Family History Family Member Type Diagnosis Age At Onset No Information Payers Payer name Insurance type Covered democrat ID Jaren soler(fanta) [facility] [id number] Social History Type Description Quantity Date Captured Comments Alcohol Use Details Unknown Caffeine Use Details Unknown Tobacco Use Status No Information Smoking Status Former Smoker Non-Smoking Tobacco Use Details : No Details Available : No Details Available Sex Male Chief Complaint And Reason For Visit No Information Reason For Referral Reason For Referral No Information History Of Present Illness Encounter Date Complaint History Of Prese nt Illness No Information Functional Status Date Functional Assessmen t No Information Instructions Date Instruction Additional Infor mation No Information Assessments Type Assessment Date No Information Patient Care Teams Name Effective Dates (start - stop) Status Members No Information
--- OUTSIDE RECORDS SUMMARY | 2024-01-29 07:37 | XMS_ITS | Encounter Summary ---
Author Organization [facility] Address [address] [place] [address] Care Team Providers Care Mining And Quarrying Machinery Repairer Name Role Phone Milan Aguiar MD Primary Care Provider [phone] Reason for Visit * Reason Comments Nutrition Counseling Encounter Details Date Type Department Care Team (Late st Contact Info) Description 01/17/2024 7:30 AM CDT Telemedicine [facility] Nutrition [address] [place], [place] [id number] Allyssa Lawson, RDN, LD [address] [place] [address] Nutritional counseling (Primary Dx); Prostate cancer ([facility]) Social History Tobacco Use Types Packs/Day Years Used Date Smoking Tobacco: Former Cigarettes Q uit: 2004 Alcohol Use Standard Drinks/Week Comments Yes 1 (1 standard drink = 0.6 oz pur e alcohol) 2 monthly Sex and Gender Information Value Date Recorded Sex Assigned at Not on file Gender Identity Not on file Sexual Orientation Not on file documented as of this encounter Last Filed Vital Signs Vital Sign Reading Time Taken Comments Blood Pressure - - Pulse - - Temperature - - Respiratory Rate - - Oxygen Saturation - - Inhaled Oxygen Concentration - - Weight 79.4 kg (175 lb) 01/17/2024 8:16 AM CDT wt taken at home today Height - - Body Mass Index 24.42 05/02/2023 11:55 AM CDT documented in this encounter Patient Instructions * Patient Instructions* Allyssa Lawson RDN, RODOLFO - 01/17/2024 7:30 AM CDT Continue dietary pattern as you have been following. May choose to increase intake of any of the dietary components you're already using, namely: - cruciferous veggies - up to 1 cup/day - berries - up to 1 cup/day - ground flax seed - up to 2 Tbsp/day documented in this encounter Progress Notes * Allyssa Lawson RDN, RODOLFO - 01/17/2024 7:30 AM CDT [facility] Nutrition Medical Nutrition Therapy Follow Up OBJECTIVE Referred By: Piero Castro Estimated body mass index is 24.42 kg/m?? as calculated from the following: Height as of 05/02/23: 5' 10.98 (1.803 m). Weight as of this encounter: 175 lb (79.4 kg).] Diagnosis: Prostate cancer s/p radiation, ADT and lupron in 2021 SUBJECTIVE Patient was called for video visit today. Pt presents to visit today regarding ongoing nutrition counseling for prostate cancer. He wants to follow a nutrition plan that will help deter further psa increase - he does not want to go back on lupron. Previously reported has been including the following so far - Daily: Garlic 2 cloves [place] sprouts 1/2 cup Other cruciferous veggies 1/2 cup Onions/scallions/leeks (allium veggies) 1/2 cup Soy 1/2 cup Tumeric/pepper 1 tsp Green tea 3x/day Ground flax seed 1 Tbsp Berries 1/2 cup Not including dairy or red meat, keeping added sugar intake to <15 g/day. Describes current diet as mediterranean. Trying to get 100 g protein in daily. He is tracking his intake - getting 25-50 grams fiber in daily. Previously discussed fiber goals. He is following recommendations for diet based on nutrition research surrounding prostate cancer - including allium and cruciferous vegetables daily, whole grains, ample vegetables, ground flax seed,whole soy foods. Previously encouraged him to add lycopene rich food source daily and pair with plant based fat. Could go up to 2 Tbsp ground flax seed daily. He did this. Also added pomegranate concentrate as he didn't like eating the seeds. Previously reviewed current weight/BMI - not necessary to lose additional weight at this time as athealthy BMI and want to avoid muscle mass loss. Discussed recipe website to assist with menu ideas to help with continuing to incorporate recommended vegetables in a variety of ways. Previously discussed adequate Vitamin D3 intake of 600 IU/day or 15 mcg. He states he's taking a K6rndungxbup as well as a daily MVI - adequate. Having a salad at lunch where he's including most vegetables and components of prostate cancer dietas noted above. Wondering if eating too much fiber is an issue - he's tracking this and sometimes will reach up to 50 g fiber in a day. States he's tolerating this okay, no GI side effects. Okay to have high intakesof fiber like this as long as tolerating from GI perspective. Received [facility] prostate cancer nutrition guide I mailed to him and found this helpful with detailed information. Since our last visit, he had PSA checked - no significant increase noted (0.5 in July, 0.6 when just rechecked). Feeling confident that dietary measures taken in last few months have made an impact on preventing notable increase in PSA. He has questions about synergy of food components today. He read a study, RCT, looking at intake ofpolyphenol rich foods and PSA progression - https://www.ncbi.nlm.nih.gov/pmc/articles/JBJ4495856/ (Prostate Cancer and Prostatic Disease (2014) 17, 180-186; doi:10.1038/pcan.2014.6; published online 02 October 2013) Wondering if it's worth taking supplement forms of broccoli, pomegranate, tumeric, and green tea asdescribed in this study, as it did appear to be associated with less or no PSA increase in study group. Discussed difficulty in feasibility of this - no specific supplement name was noted in the study, and often times, a dietary/herbal supplement with these ingredients would include several other ingredients. He could try to contact PI in the study to see if there was a specific OTC supplement they used, but overall, we discussed he could increase his intake of food forms of these if he desires. We did review that he had a pretty negligible increase in PSA as was just checked, which is positive and could be 2/2 dietary changes he adopted. Encouraged him to continue dietary practices as he has been. No additional questions today. Sent [employer] message with meta analysis of diet/supplements and PSA progression for additional reading. He will schedule follow up with me as needed. 20 lb wt decrease (intentional) in the past ~1 year. Wt Readings from Last 15 Encounters: 01/17/24 175 lb (79.4 kg) 09/09/23 178 lb (80.7 kg) 05/02/23 177 lb 8 oz (80.5 kg) 07/05/22 197 lb 9.6 oz (89.6 kg) 12/28/21 191 lb (86.6 kg) 10/23/21 187 lb 12.8 oz (85.2 kg) 07/30/21 191 lb 3.2 oz (86.7 kg) 03/16/21 181 lb (82.1 kg) 01/19/21 180 lb 8 oz (81.9 kg) 01/05/21 181 lb (82.1 kg) 03/08/13 185 lb (83.9 kg) Estimated Nutrition Needs: using most recent wt 79 kg Energy: 25-30 kcal/kg = 2738-2289 kcals/day Protein: 1-1.2 g/kg = 79-95 g/day Wt maintenance, increased protein needs d/t age >65 INTERVENTION Medical Nutrition Therapy provided, including education and counseling on the following topics: Nutrition and prostate cancer MONITORING AND EVALUATION Goals: Continue dietary pattern as you have been following. May choose to increase intake of any of the dietary components you're already using, namely: - cruciferous veggies - up to 1 cup/day - berries - up to 1 cup/day - ground flax seed - up to 2 Tbsp/day Previously discussed: High fiber eating - 30-45 grams per day. Aim for avg daily intake of 35 g/day. = 5 or more servings veggies and 2-3 servings fruit/day + 1-2 Tbsp ground flax seed/day + 1 serving (1/2 cup) legumes or 2 servings whole grains/day 2. Include a source of lycopene daily (tomatoes/cooked tomatoes, watermelon, apricot, grapefruit, guava/papaya) - best if pair w/ a source of healthy fat like olives, olive oil, or avocado 3. Continue to add tumeric and garlic to foods when preparing. 4. Recipes: Filement.NanoSteel 5. Okay for pomegranate concentrate if don't like seeds. 6. Continue vitamin D3 supplement. 7. Continue regular physical activity - just fine for moderate activity as long as you're getting at least 150 minutes per week. Vigorous activity may not always be feasible/safe. Time: 30 minutes Follow up with RD: as needed Patient was not charged for this encounter per package pricing plan. documented in this encounter Plan of Treatment Not on file documented as of this encounter Visit Diagnoses Diagnosis Nutritional counseling- Primary Prostate cancer ([facility]) Malignant neoplasm of prostate documented in this encounter Care Teams Mining And Quarrying Machinery Repairer Relationship Specialty Start Date End Date Milan Aguiar MD [address] [place] [address] PCP - General Family Practice 05/02/23 documented as of this encounter
--- OUTSIDE RECORDS SUMMARY | 2024-01-29 07:37 | XMS_ITS | Clinical Summary ---
Author Organization [facility] Address [address] [place] [address] Care Team Providers Care Data Warehousing Architect Name Role Phone Thierry Pearce MD Primary Care Provide r Thierry Pearce MD Unavailable Allergies Active Allergy Reactions Criticality Noted Date Comments No Known Drug Allergy 02/23/2000 Medications Medication Sig Dispensed Refills Start Date End Date Status Multiple Vitamins-Minerals (ONE-A-DAY MENS 50+ ADVANTAGE PO) Take 1 tablet by mouth daily. Active hydrochlorothiazide (HYDRODIURIL) 12.5 MG tablet Take 12.5 mg by mouth 01/15/2021 Active Active Problems Problem Noted Date Diagnosed Date SBO (small bowel obstruction) 01/19/2020 Small bowel obstruction 01/10/2020 Gastroesophageal reflux disease with esophagitis 08/10/2018 Abnormal glucose 11/29/2017 Urethral stone 10/09/2014 Pain in joint, pelvic region and thigh 4 History of prostate cancer 06/26/2012 Overview: On active surveillance,no treatment, is on proscar, under care of Dr Yang Mar MD, urology cosmetic consultant ACP (advance care planning) 07/01/2010 Overview: Resolved Problems Problem Noted Date Diagnosed Date Resolved Date Health [facility]ci 05/31/2013 01/09/2024 Overview: State Tier Level: Tier 0 Status: n/a 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 Mixed hyperlipidemia 05/21/2008 012 Other affections of shoulder region, not elsewhere classified 04/26/2006 06/27/2006 Pain in joint, shoulder region 03/14/2006 05/21/2008 Dysthymic disorder 3 Inguinal hernia 05/21/2008 Overview: Problem list name updated by automated process. Provider to review Malignant Neoplasm of Prostate 11/11/2015 Overview: Seeing Urology Immunizations Name Administration Dates Next Due COVID-19 MONOVALENT 12+ (Pfizer) 09/16/2020,08/2020 HEPA 06/08/2012 Influenza (High Dose) 3 valent vaccine 9 Pneumo Conj 13-V (2010&after) 08/27/2014 Pneumococcal 23 valent 11/11/2015 TD,PF 7+ (Tenivac) 11/02/1994 TDAP Vaccine (Adacel) 05/21/2008 Zoster recombinant adjuvanted (SHINGRIX) 019,10/24/2018 Zoster vaccine, live 09/28/2013 Family History Medical History Relation Comments Cancer Father lung cancer, not sure from prostate Hypertension Father Prostate Cancer Father Respiratory Sister 4 wegeners Asthma No family hx of Breast Cancer No family hx of C.A.D. No family hx of Cancer - colorectal No family hx of Diabetes No family hx of Relation Status Comments Daughter 1 Alive Daughter 2 Alive Father Mother Alive Prostate cancer Sister 1 Alive Sister 2 Alive Sister 3 Alive Sister 4 Son Alive Social History Tobacco Use Types Packs/Day Years [...] Answer Date Recorded PHQ-2 Score 0 10/21/2020 Adolescent Education Answer Date Record ed Getting School Help Needed Not on file 04/26 Sex and Gender Information Value Date Recorded Sex Assigned at Not on file Gender Identity Not on file Sexual Orientation Not on file Last Filed Vital Signs Vital Sign Reading Time Taken Comments Blood Pressure 130/78 03/09/2021 9:38 AM CDT Pulse 60 03/09/2021 9:38 AM CDT Temperature 36.2 ??C (97.2 ??F) 03/09/2021 9:38 AM CD T Respiratory Rate 20 03/09/2021 9:38 AM CDT Oxygen Saturation 95% 02/02/2021 12:33 PM CDT Inhaled Oxygen Concentration - - Weight 80.8 kg (178 lb 3.2 oz) 03/09/2021 9:38 A M CDT Height 180.3 cm (5' 11) 03/09/2021 9:38 AM CDT Body Mass Index 24.85 03/09/2021 9:38 AM CDT Plan of Treatment Health Maintenance Due Date Last Done Comments ANNUAL REVIEW OF HM ORDERS 1944 CT COLONOGRAPHY 1944 FIT 1944 FLEX SIG 1944 sDNA (Cologuard) 1944 RSV VACCINE ( & 60+) (1 - 1-dose 60+ series) 2004 LUNG CANCER SCREENING 01/19/2021 01/20/2020 FALL RISK ASSESSMENT 10/21/2021 10/21/2020, 08/10/2018, 11/29/2017, Additional history exists MEDICARE ANNUAL WELLNESS VISIT 10/21/2021 10/21/2020, 08/10/2018, 11/29/2017, Additional history exists COLONOSCOPY 09/21/2022 09/21/2019, 08/26, 09/15/2016, Additional history exists COLORECTAL CANCER SCREENING 09/21/2022 COVID-19 Vaccine ( season) 2023 11/27/2021, 04/27/2021, 09/16/2020, Additional history exists PHQ-2 (once per calendar year) 2023 10/21/2020, 10/11/2018, 08/10/2018, Additional history exists GLUCOSE 03/09/2024 03/09/2021, 09/24, 01/21/2020, Additional history exists INFLUENZA VACCINE (#1) 2024 , 05/08/2019, 08/10/2018 (Declined) LIPID 10/21/2025 10/21/2020, 07/25, 11/29/2017, Additional history exists ADVANCE CARE PLANNING 03/09/2026 03/09/2021 , 10/21/2020, 01/13/2017, Additional history exists DTAP/TDAP/TD IMMUNIZATION (3 - Td or Tdap) 12/02/2031 12/01/2021, 05/21/2008, 11/02/1994 HEPATITIS C SCREENING Completed 11/11/2015 Pneumococcal Vaccine: 65+ Years Completed 11/11/2015, 08/27/2014 ZOSTER IMMUNIZATION Completed 05/08/2019, 10/24/2018, 09/28/2013 HPV IMMUNIZATION Aged Out No longer e ligible based on patient's age to complete this topic IPV IMMUNIZATION Aged Out No longer e ligible based on patient's age to complete this topic MENINGITIS IMMUNIZATION Aged Out No l onger eligible based on patient's age to complete this topic RSV MONOCLONAL ANTIBODY Aged Out No l onger eligible based on patient's age to complete this topic Procedures Procedure Name Priority Date/Time Associated Diagnosis Comments BASIC METABOLIC PANEL (BFP) Routine 03/09/2021 Preoperative examination Benign prostatic hyperplasia with urinary hesitancy LIPID PANEL (BFP) Routine 10/21/2020 11: [address] CHEST PULMONARY EMBOLISM W CONTRAST Routine 01/20/2020 8:46 AM CDT COLONOSCOPY - HIM SCAN Routine 09/21/2019 HEPATITIS C ANTIBODY Routine 11/11/2015 10:15 AM CDT Need for hepatitis C screening test from Last 3 Months or Most Recently Relevant to Health Maintenance Results * Basic Metabolic Panel (BFP) (03/09/2021) Carbon Dioxide 28.4 20 - 32 mmol/L [facility]NAL Creatinine 1.04 0.60 - 1.30 mg/dL [facility] Glucose 95 60 - 99 mg/dL [facility] Sodium 140.4 135 - 146 mmol/L [facility] Potassium 4.54 3.5 - 5.3 mmol/L [facility] Chloride 103.5 98 - 110 mmol/L [facility] Urea Nitrogen 17 7 - 25 mg/dL [facility] Calcium 9.8 8.6 - 10.3 mg/dL [facility] BUN/Creatinine Ratio 16.3 6 - 22 [facility] INTERNAL Blood 03/09/2021 Thierry Pearce MD LAB - [facility] BLOOD LABS Performing Organization Address [facility] Co de Phone Number B[facility] INTERNAL * (ABNORMAL) Lipid Panel (BFP) (10/21/2020 11:27 AM CDT) Cholesterol 219(A) 0 - 199 mg/dL [facility] Triglycerides 64 0 - 149 mg/dL [facility] HDL Cholesterol 61 40 - 150 mg/dL [facility] LDL Cholesterol Direct 145(A) 0 - 130 mg/dL [facility] Cholesterol/HDL Ratio 4 0 - 5 [facility] Blood specimen (specimen) 10/21/2020 11:27 AM CDT Thierry Pearce MD LAB - [facility] BLOOD LABS Performing Organization Address [facility]/ZIP Co de Phone Number B[facility] INTERNAL * CT Chest Pulmonary Embolism w Contrast (01/20/2020 8:46 AM CDT) Anatomical Region Laterality Modality Chest, SUBRAD CT BODY, UMP CT CHEST Computed Tomography Impressions 01/20/2020 9:37 AM CDT IMPRESSION: 1. ??No pulmonary emboli. 2. ??Bilateral lower lobe and posterior right upper lobe patchy consolidation and minimal adjacent groundglass most consistent with multifocal infectious/inflammatory pneumonitis. Aspiration is not excluded. 3. ??Pneumoperitoneum, consider postoperative. 4. ??Coronary artery calcifications and dilatation of the aortic root measuring 4.0 cm. YONNY PETERSON MD Narrative 01/20/2020 9:[address] CHEST PULMONARY EMBOLISM W CONTRAST 01/20/2020 8:46 AM CLINICAL HISTORY: PE suspected, intermediate prob, positive D-dimer TECHNIQUE: CT angiogram chest during arterial phase injection IV contrast. 2D and 3D MIP reconstructions were performed by the computer engineering technologist. Dose reduction techniques were used. CONTRAST: 62mL [id number] COMPARISON: None. FINDINGS: ANGIOGRAM CHEST: Pulmonary arteries are normal caliber and negative for pulmonary emboli. No CT evidence of right heart strain. LUNGS AND PLEURA: The central airways are patent. Patchy consolidation in the bilateral lower lobes and posterior right upper lobe with mild adjacent groundglass component. Scant right pleural fluid. No left pleural effusion or pneumothorax. MEDIASTINUM/AXILLAE: Dilatation of the aortic root measuring 4.0 cm at the level of the sinuses of Valsalva. Coronary artery calcifications. Mild stranding and few punctate calcifications in the anterior mediastinum of doubtful clinical significance. No axillary, mediastinal or hilar lymphadenopathy. Transesophageal gastric tube with distal tip terminating in the proximal gastric body. UPPER ABDOMEN: Pneumoperitoneum and minimal anterior left soft tissue gas. MUSCULOSKELETAL: There are no destructive osseous lesions. Procedure Note Yonny Peterson MD - 01/20/2020 CT CHEST PULMONARY EMBOLISM W CONTRAST 01/20/2020 8:46 AM CLINICAL HISTORY: PE suspected, intermediate prob, positive D-dimer TECHNIQUE: CT angiogram chest during arterial phase injection IV contrast. 2D and 3D MIP reconstructions were performed by the computer engineering technologist. Dose reduction techniques were used. CONTRAST: 62mL Isovue-370 COMPARISON: None. FINDINGS: ANGIOGRAM CHEST: Pulmonary arteries are normal caliber and negative for pulmonary emboli. No CT evidence of right heart strain. LUNGS AND PLEURA: The central airways are patent. Patchy consolidation in the bilateral lower lobes and posterior right upper lobe with mild adjacent groundglass component. Scant right pleural fluid. No left pleural effusion or pneumothorax. MEDIASTINUM/AXILLAE: Dilatation of the aortic root measuring 4.0 cm at the level of the sinuses of Valsalva. Coronary artery calcifications. Mild stranding and few punctate calcifications in the anterior mediastinum of doubtful clinical significance. No axillary, mediastinal or hilar lymphadenopathy. Transesophageal gastric tube with distal tip terminating in the proximal gastric body. UPPER ABDOMEN: Pneumoperitoneum and minimal anterior left soft tissue gas. MUSCULOSKELETAL: There are no destructive osseous lesions. IMPRESSION: 1. No pulmonary emboli. 2. Bilateral lower lobe and posterior right upper lobe patchy consolidation and minimal adjacent groundglass most consistent with multifocal infectious/inflammatory pneumonitis. Aspiration is not excluded. 3. Pneumoperitoneum, consider postoperative. 4. Coronary artery calcifications and dilatation of the aortic root measuring 4.0 cm. YONNY PETERSON MD Alec Saucedo MD IMG CT ORDERABLES * Colonoscopy - HIM Scan (09/21/2019) Patient Reported PROCEDURES * Hepatitis C antibody (11/11/2015 10:15 AM CDT) HCV Antibody NON-REACTI VE NON-REACTI VE [facility] SIGNAL TO CUT OFF - [facility] 0.01 <1.00 [facility] Blood specimen (specimen) 11/11/2015 10:15 AM CDT 11/12/2015 3:55 AM CDT Narrative Resulting Agency Comment Performing Organization Information: ? CB ? [facility] ? [address] [place] [address] ? Hira Liu M.D. Woody Loo MD LAB - BLOOD ORDERA [facility] [address] [place] [address] from Last 3 Months or Most Recently Relevant to Health Maintenance Advance Directives For more information, please contact: [phone] * Full Code (Latest Code Status on File) Date Activated Date Inactivated Comments 01/19/2020 12:45 AM 01/22/2020 9:41 PM Question Answer Comments Code status determined by: Discussion with tarah nt/legal decision maker * Full Code Date Activated Date Inactivated Comments 01/10/2020 11:47 PM 01/17/2020 3:34 PM Question Answer Comments Code status determined by: Other (please documen t) Care Teams Data Warehousing Architect Relationship Specialty Start Date End Date Thierry Pearce MD [address], [address] [address] PCP - General Family Practice 01/23/16 Thierry Pearce MD [address], [id number] [place] [address] Assigned PCP 01/25/16
--- OUTSIDE RECORDS SUMMARY | 2024-01-29 07:37 | XMS_ITS | Referral Summary ---
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 Name Role Phone Thierry Pearce MD Primary Care Provide r Thierry Pearce MD Unavailable [phone] Allergies Active Allergy Reactions Criticality Noted Date [...] care of Dr Yang Mar MD, urology senior sustainability consultant ACP (advance care planning) 07/01/2010 Overview: Resolved Problems Problem Noted Date Diagnosed Date Resolved Date Health Halfway 05/31/2013 01/09/2024 Overview: State Tier Level: Tier 0 Status: n/a Tuber Operator: See Letters for [facility] Care Plan Neuralgia of groin 07/05/2011 5 Overview: Rx by dr Mccloud at [facility] Mixed hyperlipidemia 05/21/2008 012 Other affections of [...] adjuvanted (SHINGRIX) 019,10/24/2018 Zoster vaccine, live 09/28/2013 Social History Tobacco Use Types Packs/Day Years [...] 03/09/2021 9:38 AM CDT Plan of Treatment Not on file Procedures Procedure Name Priority Date/Time Associated Diagnosis [...] Blood 03/09/2021 Thierry Pearce MD LAB - [facility] Performing Organization Address [facility]/ZIP Co de Phone Number [facility] INTERNAL * [...] AM CDT Thierry Pearce MD LAB - [facility] BLOOD [facility] Performing Organization Address [facility] de Phone Number BFP INTERNAL * CT [...] 3D MIP reconstructions were performed by the medical technologist hematology. Dose reduction techniques were used. CONTRAST: 62mL [...] 3D MIP reconstructions were performed by the medical technologist hematology. Dose reduction techniques were used. CONTRAST: 62mL [...] Comment Performing Organization Information: ? CB ? [facility] ? [address] [place] [address] ? Hira Liu M.D. Woody Loo MD LAB - BLOOD ORDERA [facility] [address] [place] [address] from Last 3 Months or Most Recently Relevant to Health Maintenance Advance Directives For more information, please contact: [phone] * Full Code (Latest Code Status on File) Date Activated Date Inactivated Comments 01/19/2020 12:45 AM 01/22/2020 9:41 PM Question Answer Comments Code status determined by: Discussion with patie nt/legal decision maker * Full Code Date Activated Date Inactivated Comments 01/10/2020 11:47 PM 01/17/2020 3:34 PM Question Answer Comments Code status determined by: Other (please documen t) Care Teams Auto Top Mechanic Relationship Specialty Start Date End Date Thierry Pearce MD [address], [address] [address] PCP - General Family Practice 01/23/16 Thierry Pearce MD [address] , [address] [address] Assigned PCP 01/25/16
--- OUTSIDE RECORDS SUMMARY | 2024-01-29 07:38 | XMS_ITS | Data Portability ---
Author Organization [facility], [facility] Address [address] [place] [address] Care Team Providers Care Chimney Builder Brick Name Role Phone DEVANG ROONEY Primary Care Provider Assessment No assessment recorded. Plan of Treatment Reminders Order Date Submit Date Provider Last Modified By Organization Details Last Modified Time Details Appointments None recorded. Lab biopsy, prostate 2019 020 [facility], [address], [place], [address], 0 10:27:32 PSA, total, serum or plasma 2020 021 [facility], [address], [address], [place], [address], 1 12:55:32 Referral radiation oncologist referral - Please call patient to schedule leandro fonseca, thank you. 2020 021 YRN Hernandes MD, [address], [place], [address], 1 14:26:07 Procedures None recorded. Surgeries None recorded. Imaging None recorded. Medication Orders gentamicin 40 mg/mL injection solution 2019 020 [email or web address] Not available 0 13:06:01 Patient TargetsNo targets recorded. Patient InstructionsNo instructions recorded. Reason for Referral Please call patient to sched julieth alba, thank you. Referring Physician: Javier Anguiano, Urology, Encounter Date: 09/29/2020 Results Created Date Observation Date Name Description Value Unit Range Abnormal Flag LastModifiedBy Organization Detail LastModifiedTime 09/12/19 21 09/12/2020 PSA, total , serum or plasm a PSA, total 13.18 NG/mL 0.00-4 .00 high Not Available [facility] [address], [place], [address], 09/12/2020 12:55:32 09/12/19 21 09/12/2020 MRI, prost ate, w/wo contr ast No observ ation record ed. [email or web address] [facility] [address], [place], [address], 09/14/2020 10:16:24 Result Notes None recorded. 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 Not Available [facility] 0 23:41:19 Clinical finding Active 020 N20.0 : Staghorn calculus Not Available [facility] 0 23:41:19 Malignant tumor of prostate Active 016 C61 : Malignant tumor of prostate Not Available [facility] 0 23:41:19 Chronic prostatitis Active 016 N41.1 : Chronic prostatitis Not Available [facility] 0 23:41:19 Urinary tract obstruction Active 013 600.21 : HYPERPLASIA OF PROSTATE W/OBST Not Available [facility] 0 01:54:29 Benign prostatic hyperplasia Active 013 600.21 : HYPERPLASIA OF PROSTATE W/OBST Not Available [facility] 0 01:54:29 Lower urinary tract symptoms Active 013 600.21 : HYPERPLASIA OF PROSTATE W/OBST Not Available [facility] 0 01:54:29 History of malignant neoplasm of prostate Active 013 V10.46 : PERSONAL HX OF PROSTATE CA Not Available [facility] 0 01:54:29 Problem Notes None recorded. 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 Draw/TRACK LAYER/PSA RESULTS completed Hilary chowdary [facility] 09/12/2020 11:10:07 03/27/20 20 Gentamicin Injection completed Francois chowdary [facility] 03/27/2020 16:26:24 03/27/20 20 bg-cysto completed Javier Anguiano MD [address] [place] [address],[address], [address], [facility] 03/27/2020 13:32:05 03/27/20 20 bg-uronav completed Javier Anguiano MD [address] [place] [address],[address], [address], [facility] 03/27/2020 13:00:59 09/21/19 20 Colonoscopy thru stoma spx completed Not Available [facility] 01/03/2020 12:22:12 04/18/20 19 Us urine capacity measure completed Not Available [facility] 01/03/2020 12:22:11 03/07/20 18 Us urine capacity measure completed Not Available [facility] 01/03/2020 12:22:11 06/09/20 16 Cystoscopy completed Not Available [facility] 01/03/2020 12:22:11 06/09/20 16 Us urine capacity measure completed Not Available [facility] 01/03/2020 12:22:11 01/23/20 16 Colonoscopy thru stoma spx completed Not Available [facility] 01/03/2020 12:22:11 01/02/20 15 Us urine capacity measure completed Not Available [facility] 01/03/2020 12:22:12 10/16/19 15 Prostatectomy (turp) completed Not Available [facility] 01/03/2020 12:22:11 09/09/19 15 Us urine capacity measure completed Not Available [facility] 01/03/2020 12:22:12 09/09/19 15 Cystoscopy completed Not Available [facility] 01/03/2020 12:22:12 08/28/19 15 Us urine capacity measure completed Not Available [facility] 01/03/2020 12:22:11 08/28/19 15 Cystoscopy completed Not Available [facility] 01/03/2020 12:22:12 02/23/20 14 Anal/urinary muscle study completed Not Available [facility] 01/03/2020 12:22:11 02/23/20 14 Electro-uroflowmet ry first completed Not Available [facility] 01/03/2020 12:22:12 02/23/20 14 Cystometrogram w/vp customer service&up completed Not Available [facility] 01/03/2020 12:22:12 02/23/20 14 Intraabdominal pressure test completed Not Available [facility] 01/03/2020 12:22:12 01/25/20 14 Us urine capacity measure completed Not Available [facility] 01/03/2020 12:22:12 08/22/19 14 Us urine capacity measure completed Not Available [facility] 01/03/2020 12:22:12 01/23/20 13 Repair detached retina completed Not Available [facility] 01/03/2020 12:22:12 01/23/20 00 Prp i/lottie init reduc >5 yr completed Not Available [facility] 01/03/2020 12:22:12 01/24/19 99 Prostatectomy (turp) completed Not Available [facility] 01/03/2020 12:22:11 01/22/19 57 Appendectomy add-on completed Not Available [facility] 01/03/2020 12:22:12 Removal of tonsils completed Not Available [facility] 01/03/2020 12:22:12 Imaging Results Imaging Date Name Status LastModified by Organiz ation Details LastModified Time 09/12/2020 MRI, prostate, w/wo contrast completed [email or web address] [facility] [address], [place], [address], 09/14/2020 10:16:24 Procedure Notes None recorded. Medical Equipment None Reported. Allergies No known drug allergies Medications Name Sig Start Date Stop Date Status Note LastModified by Organization Details LastModified Time tamsulosin 0.4 mg capsule 09/29 completed Not Available Not Available Not Available levofloxaci n 500 mg tablet 03/10 completed Not Available Not Available Not Available gentamicin 40 mg/mL injection solution administe r 160 mg IM 04/04 completed Not Available Not Available Not Available oxybutynin chloride 5 mg tablet 03/10 completed Not Available Not Available Not Available amoxicillin 875 mg-potsydneyu m clavulanate 125 mg tablet 03/10 completed Not Available Not Available Not Available Cialis 5 mg tablet Take 1 tablet every day by oral route. 09/29 completed Not Available Not Available Not Available Shingrix (PF) 50 mcg/0.5 mL intramuscul ar suspension, kit 09/29 completed Not Available Not Available Not Available Vitals Date Recorded Body height Body mass index (BMI) Body weight Provider Name and Address Organization Details Last Updated DateTime 04/04/2020 180.34 cm 24 kg/m2 02086.89 g [facility] 04/04/2020 13:05:53 Date Recorded Body height Body mass index (BMI) Body weight Provider Name and Address Organization Details Last Updated DateTime 09/29/2020 180.34 cm 24.4 kg/m2 18075.66 g [facility] 09/29/2020 17:04:33 Social History Question Answer Notes LastModified by Organizat ion Details LastModified Time Tobacco Smoking Status Former Smoker Not Available [facility] 01/03/2020 03:13:17 What Is Your Level Of Alcohol Consumption? Occasional Information not available 03/10/2020 What Is Your Level Of Caffeine Consumption? Moderate Information not available 03/10/2020 How Much Tobacco Do You Chew? None Information not available 09/29/2020 Do You Or Have You Ever Used E-cigarettes Or Vape? Never Used Electronic Cigarettes Information not available 09/29/2020 When Did You Quit Smoking? 11-15yearssinc elastcigarette Information not available 09/29/2020 Race White [email or web address] Information n ot available 01/03/2020 Ethnicity Not /Latin o Information not available 09/29/2020 Preferred Language Vietnamese Information not available 09/29/2020 Recreational Drug Use No Information not available 03/10/2020 Marital Status [email or web address] Informati on not available 01/03/2020 What Was The Date Of Your Most Recent Tobacco Screening? 09/29/2020 Information not available 09/29/2020 Do You Or Have You Ever Used Smokeless Tobacco? Never Used Smokeless Tobacco Information not available 03/10/2020 Sex: Unknown Functional Status None recorded. Mental Status None recorded. Family History Relationship Description Onset Age of this Age Resolved Age Notes Notes:Diabetes:Grandmother Cancer, lung:Father Medical History Condition Response High Blood Pressure N Kidney Stones Y Depression N Lung Disease N GERD/Acid Reflux N Cancer Y High Cholesterol N Diabetes N Bleeding Disorder N Heart Disease N Immunizations Vaccine Type Date Status Provider Name and Address Organization Details Recorded Time Pneumococcal conjugate PCV 13 07/25/2015 completed DERICK [facility]con[facility] 09/29/2020 17:05:26 Past Encounters Encounter ID Performer Location Encounter Start Date Encounter Closed Date Diagnosis/Indication Diagnosis SNOMED-CT Code [id number] Javier Anguiano MD [address] [address] 03/10/2020 07:56:57 03/10/2020 17:04:05 Kidney stone 68398660 Prostate s pecific antigen above reference range 010111311 He hematuria 09200511 5 [id number] Javier Anguiano MD [address] [address] 03/27/2020 12:08:57 03/27/2020 13:35:54 Prostate specific antigen above reference range 573464678 He hematuria 45718202 5 [id number] [address] Put[address] [address] 03/27/2020 12:11:03 03/27/2020 16:34:45 Prostate specific antigen above reference range 225340485 [id number] Javier Anguiano MD [address] [place] [address] 04/04/2020 12:48:19 04/18/2020 17:16:57 Malignant tumor of prostate 629116319 [id number] Hilary De [facility] [address],[facility] [address] [place] [address] 09/12/2020 10:58:50 09/12/2020 11:21:30 History of malignant neoplasm of prostate 530601973 [id number] Javier Anguiano MD [facility] [address] [address] 09/29/2020 16:55:09 10/01/2020 15:49:28 Prostate specific antigen above reference range 841999840 Malignant tumor of prostate 995716457 Health Concerns Section Related Observation LastModified by Organization Detai ls LastModified Time None Recorded Concern Status LastModified by Organization Details LastModified Time None Recorded Advance Directives Directive None Recorded Payers Encounter Date Sequence Insurance Name Policy Number Policy Rosa Covered Member ID Rosa Member ID Guarantor Name 03/27/2020 1 [place] [place] [id number] Javier Carson [id number] Javier Carson 03/27/2020 1 [place] [id number] Javier Carson [id number] Javier Carson 04/04/2020 1 [place] [id number] Javier Carson [id number] Javier Carson 04/04/2020 1 [place] [employer] Javier Carson [id number] Javier Carson 09/12/2020 1 [place] [id number] Javier Carson [id number] Javier Carson 09/29/2020 1 [place] [id number] Javier Carson [id number] Javier Carson Notes Date Note Type Note Provider Name and Address Organization Details Recorded Time 03/27/2020 text/html HPI Notes: PSA 11.9 Javier Anguiano MD [address] [facility] [address] [address], [place], [address], [facility] 03/27/2020 13:32:41 04/04/2020 text/html HPI Notes: Ryley harris was diagnosed with prostate cancer on 03/27/2020 PSA: 11.9 Verna Score: 4+3 Stage: T2a Staging evaluation: Prostate MRI , Prostate volume: 105 grams MRI PIRAD Lesion(s) Score: 5 Laterality: Left Grade: 4+3 Zone: PZ Volume: 10% Capsule involvement: No AUA / IPSS 1. Sensation of not emptying bladder completely: ____ 2. Urinates again less than two hours after finished urinating: ____ 3. Has to start and stop when finishes urinating: ____ 4. Finds it difficult to postpone urination: ____. 5. Has a weak urinary stream: ____. 6. Push or strain to begin urination: ____. 7. Experiences nocturia: ____ Calculated AUA /IPSS Score: ____ Erectile Function / IEEF 1. Confidence to get and keep an erection: ____. 2. Erection were hard enough for penetration: ____. 3. Able to maintain an erection after penetrated partner: ____. 4. Able to maintain an erection to complete intercourse: ____ 5. Found sexual intercourse satisfactory: ____. Calculated IIEF score: ____ Continence Function Questionnaire 1. Urinary Control: ____. 2. Frequency of incontinence: ____. 3. Problem with urinary function: ____. 4.Pads used per day: ____. Total score: ____ Quality of Life QOL due to urinary symptoms: ____. bg-Prostate Standard Template: Javier Anguiano MD [address] [place] [address],[facility] [address], [address], [facility] 04/24/2020 09:21:32 09/29/2020 text/html HPI Notes: Ryley harris was diagnosed with prostate cancer on 03/27/2020 Initial PSA: 11.9 Recent PSA: 13.18 [place] Score: 4+3 Stage: T2a Number cores positive: 03, Cores with more the 35% involved: 0 MRI: 09/12/2020 - [id number] Prostate volume: 100 grams MRI PIRAD Lesion(s) Score: 5 Laterality: Left Grade: 4+3 Zone: PZ Volume: 10% Capsule involvement: No Repeat biopsy: No bg-Prostate Standard Template: Javier Anguiano MD [address] [facility],[address] [place] [address], [address], [facility] 09/29/2020 17:17:05
--- OUTSIDE RECORDS SUMMARY | 2024-01-29 07:38 | XMS_ITS | Encounter Summary ---
Author Organization [facility] Address [address] [place] [address] Care Team Providers Care Assembler Tractor Name Role Phone Milan Aguiar MD Primary Care Provider [phone] Encounter Details Date Type Department Care Team (Late st Contact Info) Description 01/05/2024 9:30 AM CDT Telemedicine [facility] Oncology [address] [place], [place] [id number] Piero Castro MBBS [address] [place], [place] [address] Prostate cancer (HRC) (Primary Dx); History of cytopenia Social History Tobacco Use Types Packs/Day Years Used Date Smoking Tobacco: Former Cigarettes Q uit: 2005 Alcohol Use Standard Drinks/Week Comments Yes 1 (1 standard drink = 0.6 oz pur e alcohol) 2 monthly Sex and Gender Information Value Date Recorded Sex Assigned at Not on file Gender Identity Not on file Sexual Orientation Not on file documented as of this encounter Patient Instructions * Patient Instructions* Piero Castro MBBS - 01/05/2024 9:30 AM CDT Selvin Carson, It was nice to see you in clinic today! Scheduling/instructions: MD visit in first or second week of June 2024: PSA 3-4 days prior Please call with any questions or concerns. The clinic phone number for use during both clinic hours and after hours is [phone]. Sincerely, Dr. Piero Castro Hematology/Oncology [facility] documented in this encounter Progress Notes * Piero Castor MBBS - 01/05/2024 9:30 AM CDT NAME: ELIZABETH CARSON HEMATOLOGY ONCOLOGY VIDEO VISIT DATE OF VISIT: 01/05/24 : 1945 REASON FOR VISIT: 1.Adenocarcinoma of the prostate. 2. History of leukopenia HISTORY OF PRESENTING ILLNESS: Mr. Elizabeth Carson is a pleasant 78-year-old male with adenocarcinomaof the prostate. Please refer to my consultation note from 12/30/2020 and my most recent follow-up note from 09/09/23 for details regarding his history and presentation. 1. He was initially receiving his care through [facility]. He has had an elevated PSA for quite a while, but around November 2019 it was in the 11.9 range. An MRI of his prostate was performed, which apparently revealed an index lesion at the left apex. He underwent biopsies of his prostate on 03/27/2020. He was noted to have Verna 4 + 3 equal to 7, grade group 3 adenocarcinoma of the prostate involving the index lesion in the left peripheral zone, there was no perineural invasion, the involvement was 15%. He, however, also had some Verna 4 + 4 equal to 8, grade group 4 adenocarcinoma involving the right medial mid gland, in 5% of the biopsy specimen with no perineural invasion. [place], the patient has seen multiple different providers regarding the optimal management for his prostate cancer. He eventually did see Dr. Ju Richey with [facility] and more recentlywas evaluated by Dr. Elizabeth Dowd with Radiation Oncology at [facility], and their notes were reviewed by me. Of note, he did have another MRI performed on 09/12/2020, which again revealed a PI-RADS-5 lesion in the left prostate. His PSA in August 2020 had gone up slightly to 13.8. 2. A plan was made to treat him with concurrent radiation therapy and androgen deprivation therapy with Lupron. He elected to go with the 22.5 mg dose of Lupron, and received his 1st dose on 02/12/2021 and his 2nd dose at 22.5 mg IM on 04/28/2021. He had a very good PSA response with his PSA comingdown to 0.1. 3. He underwent a TURP procedure on 03/16/2021 in view of obstructive urinary symptoms, and also had a urethral stone removed at the same visit. The pathology did not reveal any malignancy at the time of the TURP. In view of his TURP procedure, a plan was made to delay the radiation until the end of August/early September 2021 to allow for sufficient healing. He received 7000 cGy of radiation in 38fractions to the prostate between 10/05 and 11/25/2021 and also received 4800 cGy of radiation to the pelvic lymph nodes. 4. In follow-up, he he also had had scans of the abdomen and pelvis performed on 08/31/2021. There were no suspicious lymph nodes. He was thought to have some scar tissue in the left external iliac area, likely correlating with the site of prior left inguinal hernia surgery. There was a 5 mm sclerotic focus in the left ischium, most likely thought to be a bone island. He also had a bone scan on , there was some focal uptake in the left 11th rib, thought to be unlikely to be related tocancer, possibly fibrous dysplasia or a remote fracture. 5. He received his last dose of Lupron at 22.5 mg IM on 10/23/2021, thus completing 1 year of treatment. I had recommended considering 18-36 months of treatment but he declined in view of hot flashes, as well as some fatigue. He has been on observation since then. INTERIM HISTORY: Overall he does not have any major symptoms. He reports that he is doing very wellfrom a clinical standpoint. His hot flashes night sweats and fatigue resolved after he stopped the Lupron. He feels that his energy levels are back at baseline. He is up and about and reasonably active. He has had some issues with constipation for which he is followed with his PCP/GI. His bowel movements are more regular now, he uses MiraLax. Denies any dyspnea, chest pain or cough, no abdominal pain, no bleeding symptoms. PAST HISTORY: 1. History of kidney stones. 2. Status post TURP. 3. Status post appendectomy. FAMILY HISTORY: Father had developed prostate cancer in his 60s. He believes his paternal grandfather also had a history of prostate cancer. SOCIAL HISTORY: Retired. 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 Used to smoke 2-3 cigarettes a day for several years, but quit around 2004. Drinks alcohol socially. Lives in [place]. Has 3 children. MEDICATIONS: He is currently not on any prescription medications. ALLERGIES: NONE KNOWN. PHYSICAL EXAM: This was a video visit. A physical exam was not performed. He did not appear to have any scleral icterus. He was alert and oriented, breathing comfortably. LABS: Lab Results Component Value Date WBC 4.3 01/02/2024 RBC 5.17 01/02/2024 Hemoglobin 15.4 01/02/2024 HCT 46.9 01/02/2024 MCV 90.7 01/02/2024 MCH 29.8 01/02/2024 MCHC 32.8 01/02/2024 RDW 13.6 01/02/2024 Platelets 166 01/02/2024 Neutrophil Absolute 2.9 01/02/2024 Lymphocyte Absolute 0.8 (L) 01/02/2024 Monocyte Absolute 0.4 01/02/2024 Eosinophil Absolute 0.1 01/02/2024 Basophil Absolute 0.0 01/02/2024 Immature Granulocyte % 0.2 01/02/2024 Lab Results Component Value Date AST (SGOT) 17 08/23/2023 Alkaline Phosphatase 48 08/23/2023 Bilirubin, Total 0.6 08/23/2023 Calcium 9.8 08/23/2023 Creatinine 0.88 08/23/2023 GFR, Estimated >60 08/23/2023 GFR, Estimated >60 10/21/2021 His PSA was 11.9 on 01/12/2021. It had improved to less than 0.1 on 12/24/2021, but currently it is0.6 ASSESSMENT AND PLAN: This is a 78-year-old male with adenocarcinoma of the prostate. His ECOG performance status is 0. 1. Adenocarcinoma of the prostate: As outlined above. He has had a longstanding history of an elevated PSA, but back in November 2019 when his PSA was 11.9, he had an MRI of the prostate which revealed a suspicious lesion in his the left apex. Biopsies of his prostate were obtained in March 2020 andhe was found to have Verna 4 + 3 equals 7 grade group 3 adenocarcinoma involving the index lesionin the left peripheral zone, 15%, but he also had an area of Verna 4 + 4, grade group 4 involvingthe right medial mid gland in 5% of the sample, there was no perineural invasion. He had another MRI of prostate in August 2020 and was confirmed to have a 2.3 x 1.5 cm PI-RADS-5 lesion in the leftperipheral zone with no pelvic adenopathy. His PSA at that time was 13.8. A plan was made to treat him with concurrent radiation and Lupron therapy, and he received his 1st dose of Lupron at 22.5 mg IM on 02/12/2021. His radiation treatment was delayed as he wanted to havea TURP procedure performed to alleviate urinary symptoms but he eventually received 7600 cGy of radiation in 38 fractions between 10/05 and 11/25/2021 and also received 4800 cGy of radiation to the pelvic lymph nodes. He went on to complete 1 year of Lupron therapy, his last dose of Lupron at 22.5 mg IM was in early October 2021; he declined extending the Lupron therapy in view of hot flashes and some fatigue. At today's video visit I had a lengthy discussion with him. We reviewed his clinical course and hislabs as outlined above. There has been a very gradual rise in his PSA over the last couple of years, but the trajectory of the PSA rises quite slow, currently it is 0.6. He does not have any prostate cancer related symptoms and clinically is doing well. I did review that it is quite likely that he does have some microscopic prostate cancer cells in his body, based onthe gradually rising PSA but even if we were to do a PSMA PET scan, it is quite unlikely that we would detect any disease. It may be reasonable to monitor him for a few more months, and if his PSA isrising into the 0.8-1 range it may be reasonable to obtain a PSMA PET scan. If he has an oligometastatic recurrence we could potentially treat this with radiation and Lupron. He himself indicated that he would prefer to stay off Lupron for as long as possible, and he indicated that instead of a 3-4 month follow-up he would prefer a six-month follow-up PSA lab check. Basedon the results at that time he and I can decide on the next steps going forward. I do believe this is reasonable, and as such I will set him up for a six-month follow-up with a PSA prior to that visit. 2. He had had very mild hot flashes, likely secondary to the Lupron. These have resolved after stopping the Lupron. 3. He had been noted to have some cytopenias, could have been related to his prior radiation. Currently his CBC has improved, his counts are in the normal range. Will continue to monitor periodically. 4. In summary: We will arrange for a follow-up in about 6 months time with a PSA prior to that visit. He will also continue to follow with his PCP for his other medical issues. All these recommendations were reviewed at length. Extensive counseling was provided. Patient location: Home Physician location: [facility] documented in this encounter Plan of Treatment Scheduled Orders Name Type Priority Associated Diagnoses Orde r Schedule PSA, Tumor Marker - in 6 months Lab STAT Prostate cancer (HRC) Expected: 06/19/2024, Expires: 09/01/2024 documented as of this encounter Visit Diagnoses Diagnosis Prostate cancer (HRC)- Primary Malignant neoplasm of prostate History of cytopenia Personal history of diseases of blood and blood-forming organs documented in this encounter Care Teams Assembler Tractor Relationship Specialty Start Date End Date Milan Aguiar MD [address] [place] [address] PCP - General Family Practice 05/02/23 documented as of this encounter
--- OUTSIDE RECORDS SUMMARY | 2024-01-29 07:38 | XMS_ITS | Clinical Summary ---
Author Organization [facility] Address [place], [place] [address] Care Team Providers Care Bandoleer Straightener Stamper Name Role Phone Milan Aguiar MD Primary Care Provider [phone] Allergies No known active allergies Medications Medication Sig Dispensed Refills Start Date End Date Status multivitamin-minerals therapeutic (VITAMINS AND MINERALS) tablet Take 1 tablet by mouth. Active medication order composer bertha auguste herb 2 x day 0 04/13/2018 Active Active Problems Problem Noted Date Diagnosed Date Vasovagal near syncope 10/15/2014 Hypotension 10/15/2014 Bladder stone 10/15/2014 Chronic prostatitis 05/25/2011 Stones, prostate 05/25/2011 Elevated prostate specific antigen (PSA) 011 Painful prostate 05/25/2011 BPH (benign prostatic hypertrophy) Immunizations Name Administration Dates Next Due COVID-19 vaccine ([employer] 30mcg/0.3mL) AGUSTO Rodgers 09/16/2020,08/26/2020 Family History Relation Name Status Comments Father Mother Alive Social History Tobacco Use Types Packs/Day Years Used Date Smoking Tobacco: Former Cigarettes 0.1 40 0 07/25/1963 - 07/25/2003 Smokeless Tobacco: Never Alcohol Use Standard Drinks/Week Comments Yes 7 (1 standard drink = 0.6 oz pur e alcohol) Sex and Gender Information Value Date Recorded Sex Assigned at Not on file Gender Identity Not on file Sexual Orientation Not on file Obstetrics History Last Filed Vital Signs Vital Sign Reading Time Taken Comments Blood Pressure 124/72 04/13/2018 10:20 AM CDT Pulse 64 04/13/2018 10:20 AM CDT Temperature 36.4 ??C (97.5 ??F) 10/17/2014 8:04 PM CD T Respiratory Rate 16 03/17/2018 9:03 AM CDT Oxygen Saturation 99% 03/17/2018 9:03 AM CDT Inhaled Oxygen Concentration - - Weight 85.9 kg (189 lb 6.4 oz) 04/13/2018 10:20 AM CDT Height 179.1 cm (5' 10.5) 04/13/2018 10:20 AM C DT Body Mass Index 26.79 04/13/2018 10:20 AM CDT Plan of Treatment Health Maintenance Due Date Last Done Comments Tdap 11/08/1956 Depression screening for age 12+ 1956 Hepatitis C screening for ag e 18-79 1962 Tetanus booster 1964 Zoster (shingles) series for age 50+ (1 of 2) 1994 Medicare Wellness for age 65+ 2009 Pneumococcal series for age 65+ (1 of 1 - PCV) 2009 BMI (ht and wt on same day) for age 18+ 04/13/2019 04/13/2018 COVID-19 vaccine series (2022-24 season) 2023 11/27/2021, 04/27/2021, 09/16/2020, Additional history exists Influenza for age 65+ 03/25/2024 Advance Directives * Full Code (Latest Code Status on File) Date Activated Date Inactivated Comments 03/17/2018 8:16 AM 03/17/2018 12:28 PM * Full Code Date Activated Date Inactivated Comments 10/16/2014 9:18 AM 10/17/2014 2:[address] atus confirmed with patient and RN present for discussion Care Teams Bandoleer Straightener Stamper Relationship Specialty Start Date End Date Milan Aguiar MD [address] [place] [address] PCP - General Family Practice 07/13/21
--- OUTSIDE RECORDS SUMMARY | 2024-01-29 07:38 | XMS_ITS | Encounter Summary ---
Author Organization [facility] Address [address] [place] [address] Care Team Providers Care Roof Bolter Helper Name Role Phone Milan Aguiar MD Primary Care Provider [phone] Reason for Visit * Procedure/Equipment (Routine) - Incomplete Specialty Diagnoses / Procedures Referred By Yaniv fonseca Referred To Contact Diagnoses Kidney stone Procedures XR Abd Flat/KUB 1 View Erin Brown APRN, RESULTS TECHNICIAN [address] [place] [address] Referral ID Status Reason Start Date Expiration Date V isits Requested Visits Authorized [id number] Incomplete 11/14/2023 02/12/2025 1 1 Encounter Details Date Type Department Care Team (Late st Contact Info) Description 11/14/2023 10:10 AM CDT Ancillary Procedure [facility] [address] Radiology [address] [place] [address] Erin Borwn APRN, RESULTS TECHNICIAN [address] [place] [address] Kidney stone Social History Tobacco Use Types Packs/Day Years [...] on file documented as of this encounter Procedures Procedure Name Priority Date/Time Associated Diagnosis Comments XR ABD FLAT/KUB 1 VIEW Routine 11/14/2023 10:21 AM CDT Kidney stone documented in this encounter Results * XR Abd Flat/KUB 1 View (11/14/2023 [...] to large volume ofcolonic stool. Erin Brown STRETCH MACHINE OPERATOR, RESULTS TECHNICIAN RAD [facility] documented in this encounter Visit Diagnoses Diagnosis Kidney stone Calculus of kidney documented in this encounter Care Teams Roof Bolter Helper Relationship Specialty Start Date End Date Milan Aguiar MD [address] [place] [address] PCP - General Family Practice 05/02/23 documented as of this encounter
--- OUTSIDE RECORDS SUMMARY | 2024-01-29 07:38 | XMS_ITS | Encounter Summary ---
Author Organization [facility] Address [address] [place] [address] Care Team Providers Care Tugboat Mate Name Role Phone Milan Aguiar MD Primary Care Provider [phone] Reason for Visit * Reason Comments Scheduling Encounter Details Date Type Department Care Team (Late st Contact Info) Description 09/09/2023 Telephone [facility] Oncology [address] [place], [place] [id number] Piero Castro MBBS [address] [place], [place] [address] Scheduling Social History Tobacco Use Types Packs/Day Years Used Date Smoking Tobacco: Former Cigarettes Q uit: 2005 Alcohol Use Standard Drinks/Week Comments Yes 1 (1 standard drink = 0.6 oz pur e alcohol) 2 monthly Sex and Gender Information Value Date Recorded Sex Assigned at Not on file Gender Identity Not on file Sexual Orientation Not on file documented as of this encounter Nursing Notes * Lane Jerry RN - 09/09/2023 11:24 AM CST Requested patient to call in to schedule. See scheduling instructions from 09/09/2023 CAL EFFECTS CAMERA OPERATOR documented in this encounter Plan of Treatment Not on file documented as of this encounter Visit Diagnoses Not on filedocumented in this encounter Care Teams Tugboat Mate Relationship Specialty Start Date End Date Milan Aguiar MD [address] [place] [address] PCP - General Family Practice 05/02/23 documented as of this encounter
--- OUTSIDE RECORDS SUMMARY | 2024-01-29 07:38 | XMS_ITS | Encounter Summary ---
Author Organization [facility] Address [address] [place] [address] Care Team Providers Care Photo Cartographer Name Role Phone Milan Aguiar MD Primary Care Provider [phone] Reason for Referral * Procedure/Equipment (Routine) - Incomplete Specialty Diagnoses / Procedures Referred By Yaniv t Referred To Contact Diagnoses Kidney stone Procedures XR Abd Flat/KUB 1 View Rashmi Brown APRN, OPTICAL GOODS DRILL OPERATOR [address] [employer] [place] [address] Referral ID Status Reason Start Date Expiration Date V isits Requested Visits Authorized [id number] Incomplete 11/14/2023 02/12/2025 1 1 Reason for Visit * Reason Comments CONSULT Follow-up Encounter Details Date Type Department Care Team (Late st Contact Info) Description 11/14/2023 9:45 AM CDT Office Visit [facility] [address] [facility] [address] [place] [address] Rashmi Brown APRN, OPTICAL GOODS DRILL OPERATOR [address] [place] [address] Kidney stone (Primary Dx); Hypercalciuria Social History Tobacco Use Types Packs/Day Years Used Date Smoking Tobacco: Former Cigarettes Q uit: 2004 Alcohol Use Standard Drinks/Week Comments Yes 1 (1 standard drink = 0.6 oz pur e alcohol) 2 monthly Sex and Gender Information Value Date Recorded Sex Assigned at Not on file Gender Identity Not on file Sexual Orientation Not on file documented as of this encounter Progress Notes * Rashmi Brown APRN, CNP - 11/14/2023 9:45 AM CDTAddended by: RASHMI BROWN on: 11/14/2023 12:35 PM Modules accepted: Level of Service * Rashmi Brown APRN, CNP - 11/14/2023 9:45 AM CDT Chief Complaint Patient presents with CONSULT Follow-up Javier Magdy Carson is a 78 y.o. male here for f/u renal stones Urologic History: - has had stones in the last 4 years - left [facility] 05/16, had good stone clearance. Stone was mostly calcium oxalate - he had urethral stone removed along with TURP in February 2021 - stones are mostly calcium oxalate with a little calcium phosphate - he was started in hydrochlorothiazide 12.5 mg and was increased to 25 mg - he has improved his water intake and watching his oxalate intake - he is getting dietary calcium Prostate cancer: - he completed XRT 11/25/21 - received ADT total of 4 doses, last one 10/23/21 (3 month doses). - he is doing well, no urinary complaints. The ADT effects have worn off. - he follows Dr. Castro in Oncology Assessment/Plan: 1. Kidney stone 2. Hypercalciuria - continue hydrochlorothiazide - KUB today - f/u pending KUB - if no stone, f/u 1 year with KUB - repeat saturation profile - will send recs on my chart or call Rashmi Brown APRN, CNP documented in this encounter Plan of Treatment Scheduled Orders Name Type Priority Associated Diagnoses Orde r Schedule Supersaturation Profile, Urine 24 Hr Lab Routine Kidney stone Hypercalciuria Expected: 11/14/2023, Expires: 02/12/2024 documented as of this encounter Results * XR Abd Flat/KUB [...] pattern. Moderate to large volume ofcolonic stool. Rashmi Brown APRN, OPTICAL GOODS DRILL OPERATOR RAD [facility] documented in this encounter Visit Diagnoses Diagnosis Kidney stone- Primary Calculus of kidney Hypercalciuria Unspecified disorders of calcium metabolism Kidney stone Calculus of kidney documented in this encounter Care Teams Photo Cartographer Relationship Specialty Start Date End Date Milan Aguiar MD [address] [place] [address] PCP - General Family Practice 05/02/23 documented as of this encounter
--- OUTSIDE RECORDS SUMMARY | 2024-01-29 07:38 | XMS_ITS | Encounter Summary ---
Author Organization [employer] Address [address] [place] [address] Care Team Providers Care Efficiency Miner Blasting Name Role Phone Milan Aguiar MD Primary Care Provider [phone] Encounter Details Date Type Department Care Team (Late st Contact Info) Description 01/02/2024 8:00 AM CDT Lab Visit [facility] [address] [place] [address] Kidney stone (Primary Dx); Hypercalciuria; Prostate cancer (HRC) Social History Tobacco Use [...] Procedure Name Priority Date/Time Associated Diagnosis Comments CONTAINER TEST Routine 01/02/2024 11:16 AM CDT Kidney stone Hypercalciuria URINE CONTAINER, 24 HOUR Routine 01/02/2024 11:16 AM CDT Kidney stone Hypercalciuria CBC AND DIFFERENTIAL PANEL STAT 01/02/2024 7:56 AM CDT Prostate cancer (HRC) COMPLETE BLOOD COUNT-W/DIFF STAT 01/02/2024 7:56 AM CDT Prostate cancer (HRC) PROSTATIC SPECIFIC ANTIGEN (DIAGNOSTIC F/U) STAT 01/02/2024 7:56 AM CDT Prostate cancer (HRC) documented in this encounter Results * Urine Container, 24 Hour (01/02/2024 11:16 AM CDT) Container Given Done 01/02/2024 1:00 PM T [facility] Other Specimen Type 01/02/2024 11:16 AM CDT 01/02/2024 11:16 AM CDT Erin Brown APRN, CNP LAB_1 [facility] [address] [place] [address] * (ABNORMAL) Complete Blood Count-W/Diff (01/02/2024 7:56 AM CDT) WBC 4.3 3.5 - 10.5 x10(9)/L 01/02/2024 8:05 AM [facility] RBC 5.17 4.32 - 5.72 x10(12)/L 01/02/2024 8:05 AM [facility] Hemoglobin 15.4 13.5 - 17.5 g/dL 01/02/2024 8:05 AM [facility] HCT 46.9 38.8 - 50.0 % 01/02/2024 8:05 AM [facility] MCV 90.7 80.0 - 100.0 fL 01/02/2024 8:05 AM [facility] MCH 29.8 27.6 - 33.3 pg 01/02/2024 8:05 AM [facility] MCHC 32.8 31.5 - 35.2 g/dL 01/02/2024 8:05 AM [facility] RDW 13.6 11.9 - 15.5 % 01/02/2024 8:05 AM [facility] Platelets 166 150 - 450 x10(9)/L 01/02/2024 8:05 AM [facility] Automated NRBC 0 <=0 /100 WBC 01/02/2024 8:05 AM [facility] Neutrophil Absolute 2.9 1.7 - 7.0 10(9)/L 01/02/2024 8:05 AM [facility] Lymphocyte Absolute 0.8(L) 1.0 - 4.8 10(9)/L 01/02/2024 8:05 AM [facility] Monocyte Absolute 0.4 0.2 - 0.9 10(9)/L 01/02/2024 8:05 AM [facility] Eosinophil Absolute 0.1 0.0 - 0.5 10(9)/L 01/02/2024 8:05 AM [facility] Basophil Absolute 0.0 0.0 - 0.3 10(9)/L 01/02/2024 8:05 AM [facility] Immature Granulocyte % 0.2 0.0 - 0.5 % 01/02/2024 8:05 AM [facility] Blood Venipuncture / Unknown 01/02/2024 7:56 AM CDT 01/02/2024 7:59 AM CDT Piero ADRIAN LAB_1 [facility] [address] [place] [address], [facility] * Prostatic Specific Antigen (Diagnostic F/U) (01/02/2024 7:56 AM CDT) Prostatic Specific Antigen 0.6 0.0 - 4.0 ng/mL 01/02/2024 3:07 PM CDT [facility] Blood Venipuncture / Unknown 01/02/2024 7:56 AM CDT 01/02/2024 7:59 AM CDT Narrative [facility] - 01/02/2024 3:07 PM CDT The [facility] PSA Chemiluminescent immunoassay is used. Results obtained with different test methods or kits cannot be used interchangeably. Piero ADRIAN LAB_1 [facility] [address] [place] [address], [facility] documented in this encounter Visit Diagnoses Diagnosis Kidney stone- Primary Calculus of kidney Hypercalciuria Unspecified disorders of calcium metabolism Prostate cancer (HRC) Malignant neoplasm of prostate documented in this encounter Care Teams Efficiency Miner Blasting Relationship Specialty Start Date End Date Milan Aguiar MD [address] [place] [address] PCP - General Family Practice 05/02/23 documented as of this encounter
--- OUTSIDE RECORDS SUMMARY | 2024-01-29 07:38 | XMS_ITS | Encounter Summary ---
Author Organization [facility] Address [address] [place] [address] Care Team Providers Care Conservation Or Heritage Architect Name Role Phone Milan Aguiar MD Primary Care Provider [phone] Encounter Details Date Type Department Care Team (Late st Contact Info) Description 09/30/2023 E-Visit [facility] Nutrition [address] [place], [place] [address] [place] [address] Social History Tobacco Use Types Packs/Day Years [...] on filedocumented in this encounter Care Teams Conservation Or Heritage Architect Relationship Specialty Start Date End Date Milan Aguiar MD [address] [place] [address] PCP - General Family Practice 05/02/23 documented as of this encounter
--- OUTSIDE RECORDS SUMMARY | 2024-01-29 07:38 | XMS_ITS | Encounter Summary ---
Author Organization [facility] Address [address] [place] [address] Care Team Providers Care Mulling Machine Operator Name Role Phone Milan Aguiar MD Primary Care Provider [phone] Reason for Visit * Reason Comments Follow-up, NOS Encounter Details Date Type Department Care Team (Late st Contact Info) Description 12/21/2023 Telephone [facility] - Urology [address] [facility] [place] [address] Aleksandra Richey MD [address] [place] [address] Follow-up, NOS Social History Tobacco Use Types Packs/Day Years [...] as of this encounter Nursing Notes * Cristela Eason RN - 12/22/2023 10:39 AM CDT Patient notified. Thanks * Aleksandra Richey MD - 12/22/2023 7:50 AM CDT I was not aware of that, but this is not my area of expertise. Best for him to discuss that [facility] * Cristela Eason RN - 12/21/2023 11:50 AM CDT Patient called concerned with information he found on [place]'s website that vacuum pumps can damage the elastic tissue in the penis and cause him not to get good erections. He wanted Dr. Richey's opinion on this. documented in this encounter Plan of Treatment Not on file documented as of this encounter Visit Diagnoses Not on filedocumented in this encounter Care Teams Mulling Machine Operator Relationship Specialty Start Date End Date Milan Aguiar MD [address] [place] [address] PCP - General Family Practice 05/02/23 documented as of this encounter
--- OUTSIDE RECORDS SUMMARY | 2024-01-29 07:38 | XMS_ITS | Data Portability ---
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 Patient is low complexity with 0 personal factors/comorbidi ties affecting the plan of care, low complexity decision making and a stable clinical presentation. Examination yields 3 affected structures, participation restrictions and/or functional limitations. The patient will benefit from PT to decrease pain and increase function. Contributing factors include muscle guarding, Treatment will include exercises to release muscle tension and increase strength and stability. Habit monitoring and repeated reminding techniques will be utilized to eliminate habitual clenching. Improvement in first session; cervical ROM increased, stiffness in massaeters and SCMs decreased decreased Short term goals; 3 weeks Client to improve cervical ROM to Within Normal Limits Improve patient awareness of muscle guarding habits to decrease pain by 50% nursing home goals-6 weeks Client to demonstrate independence in maintaining precautions to prevent TMJ pain PLAN: Client is to be seen 1x/week for up to 8 visits for instruction in jaw and neck exercises, self-soft tissue mobilization and avoidance of precipitating parafunctional activities.. At end of initial treatment series, client is to be seen PRN within 90 days from last visit. [email or web address] Not available 02/23/2021 15:19:45 03/12/2021 03/12/2021 Improvement in first session; cervical ROM increased, stiffness in massaters and SCMs decreased decreased. Gains maintained on recheck. He will decrease to one time per day for jail compliance. He will go full minute on SCM STM. Short term goals; 3 weeks Client to improve cervical ROM to Within Normal Limits Improve patient awareness of muscle guarding habits to decrease pain by 50% nursing home goals-6 weeks Client to demonstrate independence in maintaining precautions to prevent TMJ pain PLAN: Client is to be seen PRN for instruction in jaw and neck exercises, self-soft tissue mobilization and avoidance of precipitating parafunctional activities.. At end of initial treatment series, client is to be seen PRN within 90 days from last visit. Goals have been met. [email or web address] Not available 03/12/2021 09:52:17 Plan of Treatment Reminders Order Date Submit Date Provider Last Modified By Organization Details Last Modified Time Details Appointments None record ed. Lab None record ed. Referral None record ed. Procedures None record ed. Surgeries None record ed. Imaging None record ed. Medication Orders None record ed. Patient TargetsNo targets recorded. Patient Instructions Encounter Date Encounter Id Patient Instructions Last Modified By Organization Details Last Modified Time 02/23/2021 [id number] Plan: Medicare requires a cake winder or PEDIATRIC RADIOLOGIST to authorize our plan of care. If you agree with the plan as outlined above, please sign, date and fax back to [phone]. Thank you. Primary MD signature: Date: [email or web address] Not available 02/23/2021 14:38:08 03/12/2021 [id number] Plan: Medicare requires a cake winder or PEDIATRIC RADIOLOGIST to authorize our plan of care. If you agree with the plan as outlined above, please sign, date and fax back to [phone]. Thank you. Primary MD signature: Date: [email or web address] Not available 03/12/2021 09:31:49 Reason for Referral None Reported. Procedures Surgical History Date Name Laterality Status Provider Name and Address Organization Details Recorded Time 08370: Therapeutic Exercise completed DERICK Leos - [facility] 03/12/2021 09:52:24 [id number] PT Eval - Low Complexity completed DERICK Leos [facility] 02/23/2021 15:24:18 1 19124: Therapeutic Exercise completed DERICK Leos [facility] 02/23/2021 15:24:09 1 61504: Manual Therapy completed DERICK Leos [facility] 02/23/2021 15:25:05 Imaging Results None recorded. Procedure Notes None recorded. Medical Equipment None Reported. Medications Name Sig Start Date Stop Date Status Note LastModified by Organization Details LastModified Time trazodone 50 mg tablet active Not Available Not Available No t Available hydrochlorothi azide 12.5 mg tablet active Not Available Not Available Not Available ID NOW COVID-19 Test Kit DIRECTED active Not Available Not Available No t Available Vitals None Recorded Social History None recorded. Functional Status None recorded. Mental Status None recorded. Family History Nothing Reported. Medical History No medical history recorded. Past Encounters Encounter ID Performer Location Encounter Start Date Encounter Closed Date Diagnosis/Indication Diagnosis SNOMED-CT Code [id number] Travis Lang [place] [id number] [place] [address] 02/23/2021 14:27:17 02/23/2021 16:04:06 [id number] Travis Lang [place] [address] [place] [address] 03/12/2021 09:26:49 03/12/2021 10:34:07 Health Concerns Section Related Observation LastModified by Organization Detai ls LastModified Time None Recorded Concern Status LastModified by Organization Details LastModified Time None Recorded Advance Directives Directive None Recorded Payers Encounter Date Sequence Insurance Name Policy Number Policy Roas Covered Member ID Rosa Member ID Guarantor Name 02/23/2021 1 [place] [id number] Javier Carson [id number] Javier Carson 03/12/2021 1 [place] [id number] Javier Carson [id number] Javier Carson Notes Date Note Type Note Provider Name and Address Organization Details Recorded Time 02/23/2021 text/html HPI Notes: Roxycarlie steven presents today for PT evaluation regarding jaw pain. Symptoms began with no clear triggering events. Functional limitations and participation restrictions include eating, yawning, talking, laughing, oral hygiene. Personal factors and/or comorbidities affecting the plan of care include: *Clenching no *Bruxism *Leaning on chin no *Biting objects no *Unilateral chewing left sidee *Low stress level *Low anxiety level *Nicotine no. gum chewing no *Caffeine 3 per day *Sleep position sides He reports 3 year ago problem, with sharp pain eating. It got better with PT. He had exercises he did diligently for some time, then stopped after symptoms receded. It went away then it came back two months ago Jaw opening 59 mm, no clicking Left lateral excursion 12 mm with no pain. Right lateral excursion is 13 mm with no pain. Right now 0/10 pain cervical rotation left 65, right 68 degrees. After soft tissue mobilization to sternocleidomastoid , neck rotation to left 76, right 77 degree, with ease of turning much improved. He is tender in the masseters, sternocleidomastoid . Tight muscle bands and trigger points are present Client was instructed in TMJ rotation with hands down side of face to stretch masseter, teeth apart, tongue up at roof of mouth. His masseters will be loosened in this process and limit re-stiffening of TMJ if successful. Travis chowdary [place] - [facility] 02/23/2021 15:56:38 03/12/2021 text/html HPI Notes: Ryley harris presents today for PT evaluation regarding jaw pain. Symptoms began with no clear triggering events. Functional limitations and participation restrictions include eating, yawning, talking, laughing, oral hygiene. Personal factors and/or comorbidities affecting the plan of care include: *Clenching no *Bruxism *Leaning on chin no *Biting objects no *Unilateral chewing left sidee *Low stress level *Low anxiety level *Nicotine no. gum chewing no *Caffeine 3 per day *Sleep position sides He reports 3 year ago problem, with sharp pain eating. It got better with PT. He had exercises he did diligently for some time, then stopped after symptoms receded. It went away then it came back two months ago Jaw opening 59 mm, no clicking Left lateral excursion 12 mm with no pain. Right lateral excursion is 13 mm with no pain. Right now 0/10 pain cervical rotation left 65, right 68 degrees. After soft tissue mobilization to sternocleidomastoid , neck rotation to left 76, right 77 degree, with ease of turning much improved. He is tender in the masseters, sternocleidomastoid . Tight muscle bands and trigger points are present Client was instructed in TMJ rotation with hands down side of face to stretch masseter, teeth apart, tongue up at roof of mouth. His masseters will be loosened in this process and limit re-stiffening of TMJ if successful. 8-19 he is doing his exercises regularly with good results; no pain; eating is going well, no c/o. no headaches. cervical rotation left 81, right 73 degrees. After correcting SCM massage, he was not doing circular motion ands missing some of the muscle. Rotation improved left 83, right 78 degrees. TMJ rotation is good technique jaw opening 61 mm; mild clicking at end DERICK Leos - [facility] 03/26/2021 09:25:08
== END 2024-01-27 13:54 | disposition home or self-care (01) ==
LOC: NFLDREF 01-29 07:36
PROVIDERS: PCP Family Medicine; Referring Provider Family Medicine; Visit Provider Family Medicine
DX: C61 Malignant neoplasm of prostate (principal)
CPT/HCPCS: 84153

== ENCOUNTER 2024-04-27 13:30 | Outpatient (CLI) | payer MEDICARE, SELFPAY ==
--- OUTSIDE RECORDS SUMMARY | 2024-05-01 09:14 | XMS_ITS | Encounter Summary ---
Author Organization [facility] Address [address] [place] [address] Care Team Providers Care Audit Partner Name Role Phone Thierry Pearce MD Primary Care Provide r Thierry Pearce MD Unavailable Reason for Visit * Reason Onset Date Comments Forms 12/02/2017 Encounter Details Date Type Department Care Team (Late st Contact Info) Description 12/02/2017 Telephone [facility] [address] [place] [address] Thierry Pearce MD [address] , [id number] [place] [address] [id number] Forms Social History Tobacco Use Types Packs/Day [...] received some forms from [facility] [place] for PT initial examination that need vineet [...] documented as of this encounter Care Teams Audit Partner Relationship Specialty Start Date End Date Thierry Pearce MD [address] , [address] [address] PCP - General Family Practice 01/23/16 Thierry Pearce MD [address], [address] [address] Assigned PCP 01/25/16 04/15/24 documented as of this encounter
--- OUTSIDE RECORDS SUMMARY | 2024-05-01 09:14 | XMS_ITS | Clinical Summary ---
Author Organization [facility] Address [address] [place] [address] Care Team Providers Care Claims Examiner Name Role Phone Thierry Pearce MD Primary Care Provide r Allergies Active Allergy Reactions Criticality Noted Date [...] care of Dr Yang Mar MD, urology sales and service consultant ACP (advance care planning) 07/01/2010 Overview: Resolved Problems Problem Noted Date Diagnosed Date Resolved Date Health Snf 05/31/2013 01/09/2024 Overview: State Tier Level: Tier 0 Status: n/a Logistics Service Representative: See Letters for [facility] Care Plan Neuralgia of groin 07/05/2011 5 Overview: Rx by dr Mccloud at [facility] Mixed hyperlipidemia 05/21/2008 012 Other affections of shoulder region, not elsewhere classified 04/26/2006 06/27/2006 Pain in joint, shoulder region 03/14/2006 05/21/2008 Dysthymic disorder 3 Inguinal hernia 05/21/2008 Overview: Problem list name updated by automated process. Provider to review Malignant Neoplasm of Prostate 11/11/2015 Overview: Seeing Urology Immunizations Name Administration Dates Next Due COVID-19 MONOVALENT 12+ (Pfizer) 09/16/2020,08/2020 HEPA 06/08/2012 Influenza (High Dose) Trivalent,PF (Fluzone) Pneumo Conj 13-V (2010&after) 08/27/2014 Pneumococcal 23 [...] SIG 1944 sDNA (Cologuard) 1945 RSV VACCINE (1 - 1-dose 75+ series) 11/08/2019 LUNG CANCER SCREENING 01/19/2021 01/20/2020 FALL RISK ASSESSMENT 10/21/2021 10/21/2020, 08/10/2018, 11/29/2017, Additional history exists COLONOSCOPY 09/21/2022 09/21/2019, 08/26, 09/15/2016, Additional history exists COLORECTAL CANCER SCREENING 09/21/2022 PHQ-2 (once per calendar year) 2023 10/21/2020, 10/11/2018, 08/10/2018, Additional history exists GLUCOSE 03/09/2024 03/09/2021, 09/24, 01/21/2020, Additional history exists COVID-19 Vaccine ( season) 2024 11/27/2021, 04/27/2021, 09/16/2020, Additional history exists INFLUENZA VACCINE (#1) 2024 [...] [facility] Performing Organization Address [facility] Co de Phone Number [facility] * [...] AM CDT Thierry Pearce MD [facility] - [facility] Performing Organization Address [facility] [[email or web address]] de Phone Number [facility] * CT [...] 3D MIP reconstructions were performed by the industrial technologist. Dose reduction techniques were used. CONTRAST: [...] 3D MIP reconstructions were performed by the industrial technologist. Dose reduction techniques were used. CONTRAST: [...] Comment Performing Organization Information: ? CB ? [facility] ? [address] [place] [address] ? Hira Liu M.D. Woody Loo MD LAB - BLOOD ORDERA BLES [facility] [address] [place] [address] from Last 3 Months or Most Recently Relevant to Health Maintenance Advance Directives For more information, please contact: [phone] * Full Code (Latest Code Status on File) Date Activated Date Inactivated Comments 01/19/2020 12:45 AM 01/22/2020 9:41 PM Question Answer Comments Code status determined by: Discussion with patie nt/legal decision maker * Full Code Date Activated Date Inactivated Comments 01/10/2020 11:47 PM 01/17/2020 3:34 PM Question Answer Comments Code status determined by: Other (please documen t) Care Teams Claims Examiner Relationship Specialty Start Date End Date Thierry Pearce MD [address], [id number] [place] [address] PCP - General Family Practice 01/23/16
--- OUTSIDE RECORDS SUMMARY | 2024-05-01 09:14 | XMS_ITS | Continuity of Care Document ---
Author Organization [facility] Address [address] [place] [address] Phone Care Team Providers Care Director [employer] Name Role Phone Dilip Gil MD Unavailable [...] Providers Copied on Encounter [facility], [address], [place], [place], [id number], [place] tel:[phone] [facility] No Information Louise Cherry. [address], [place], [id number], [place]. tel:[phone] Referring Provider: DERICK ROSA. [facility], [address], [place], [place], [id number], [place] tel:[phone] [facility] No Information Rogers Mclean. [address], [place], [address], [place]. tel:[phone] Referring Provider: REFERRAL SELF, DERICK. Est Pt Eval [facility], [address], [place], [place], [id number], [place] tel:[phone] [facility] No Information Rogers Mclean. [address], [place], [address], [place]. tel:[phone] Referring Provider: REFERRAL SELFDERICK. Est Pt Eval [facility], [address], [place], [id number], [place] tel:[phone] [facility] No Information Rogers Mclean. [address], [place], [address], [place]. tel:[phone] Referring Provider: REFERRAL SELFDERICK. New Pt Eval [facility], [address], [id number], tel:[phone] [facility] No Information Rogers Mclean. [address], [place], [address], [place]. tel:[phone] Referring Provider: REFERRAL SELF, DERICK. Family History Family Member Type Diagnosis Age At Onset No Information Payers Payer name Insurance type Covered republican ID Jaren soler([employer]) [facility] [id number] Social History Type Description Quantity Date Captured [...]
--- OUTSIDE RECORDS SUMMARY | 2024-05-01 09:14 | XMS_ITS | Encounter Summary ---
Author Organization [facility] Address [address] [place] [address] Care Team Providers Care Oil Change Technician Name Role Phone Thierry Pearce MD Primary Care Provide r Thierry Pearce MD Unavailable Encounter Details Date Type Department Care Team (Late st Contact Info) Description 12/07/2021 [facility] [address] [address] Debi Larsen Social History Tobacco [...] on filedocumented in this encounter Care Teams Oil Change Technician Relationship Specialty Start Date End Date Thierry Pearce MD [address], [id number] [place] [address] PCP - General Family Practice 01/23/16 Thierry Pearce MD [address], [id number] [place] [address] Assigned PCP 01/25/16 04/15/24 documented as of this encounter
--- OUTSIDE RECORDS SUMMARY | 2024-05-01 09:14 | XMS_ITS | Referral Summary ---
Author Organization [facility] Address [address] [place] [address] Care Team Providers Care Carving Machine Operator Name Role Phone Thierry Pearce MD Primary [...] care of Dr Yang Mar MD, urology mobile sales consultant ACP (advance care planning) 07/01/2010 Overview: Resolved Problems Problem Noted Date Diagnosed Date Resolved Date Health Fpc 05/31/2013 01/09/2024 Overview: State Tier Level: Tier 0 Status: n/a Derrick Boat Operator: See Letters for [facility] Care Plan Neuralgia of groin 07/05/2011 5 Overview: Rx by dr Mccloud at [facility] Mixed hyperlipidemia 05/21/2008 012 Other affections [...] Blood 03/09/2021 Thier[facility]ce MD [facility] Performing Organization Address [facility]/ZIP Co de Phone Number BFP INTERNAL * [...] AM CDT Thierry Pearce MD LAB - [facility] Performing Organization Address [facility] de Phone Number BFP INTERNAL * [...] 3D MIP reconstructions were performed by the chief medical technologist. Dose reduction techniques were used. CONTRAST: [...] 3D MIP reconstructions were performed by the chief medical technologist. Dose reduction techniques were used. CONTRAST: [...] Comment Performing Organization Information: ? CB ? [facility] ? [address] [facility] [place] [address] ? Hira Liu M.D. Woody Loo MD LAB - BLOOD ORDERA BLES [facility] [address] [place] [address] from Last 3 Months or Most Recently Relevant to Health Maintenance Advance Directives For more information, please contact: [phone] * Full Code (Latest Code Status on File) Date Activated Date Inactivated Comments 01/19/2020 12:45 AM 01/22/2020 9:41 PM Question Answer Comments Code status determined by: Discussion with sashae nt/legal decision maker * Full Code Date Activated Date Inactivated Comments 01/10/2020 11:47 PM 01/17/2020 3:34 PM Question Answer Comments Code status determined by: Other (please documen t) Care Teams Carving Machine Operator Relationship Specialty Start Date End Date Thierry Pearce MD [address], [id number] [place] [address] PCP - General Family Practice 01/23/16
--- OUTSIDE RECORDS SUMMARY | 2024-05-01 09:15 | XMS_ITS | Data Portability ---
Author Organization [place] - [facility], [facility] Address [address] [place] [address] [address] [place] [address] Care Team Providers Care Dairy Farmer Name Role Phone DEVANG ROONEY Primary Care Provider ROLANDO POWELL Referring Provider Assessment Encounter Date Assessment Date Assessment LastModified [...] guarding habits to decrease pain by 50% long term acute care registered nurse goals-6 weeks Client to demonstrate independence in [...] decrease to one time per day for correction compliance. He will go full minute on SCM STM. Short term goals; 3 weeks Client to improve cervical ROM to Within Normal Limits Improve patient awareness of muscle guarding habits to decrease pain by 50% half-way goals-6 weeks Client to demonstrate independence in [...] By Organization Details Last Modified Time 02/23/2021 [id number] Plan: Medicare requires a natural history collections curator or ANIMAL ATTENDANTS AND TRAINERS to authorize our plan of care. If you agree with the plan as outlined above, please sign, date and fax back to [phone]. Thank you. Primary MD signature: Date: csather Not available 02/23/2021 14:38:08 03/12/2021 [id number] Plan: Medicare requires a natural history collections curator or ANIMAL ATTENDANTS AND TRAINERS to authorize our plan of care. If you agree with the plan as outlined above, please sign, date and fax back to [phone]. Thank you. Primary MD signature: Date: csather Not available 03/12/2021 09:31:49 Reason for Referral None Reported. Procedures Surgical History Date Name Laterality Status Provider Name and Address Organization Details Recorded Time 54343: Therapeutic Exercise completed Travis SEPULVEDA [facility] 03/12/2021 09:52:24 03505 PT Eval - Low Complexity completed Travis SEPULVEDA [facility] 02/23/2021 15:24:18 1 35940: Therapeutic Exercise completed Travis Lang [facility] 02/23/2021 15:24:09 1 67198: Manual Therapy completed Travis Lang [facility] [...] Encounter Closed Date Diagnosis/Indication Diagnosis SNOMED-CT Code Diagnosis ICD10 Code [id number] Travis Lang [facility] [address] [place] [address] 02/23/2021 14:27:17 02/23/2021 16:04:06 [id number] Travis Lang [facility] [address] [place] [address] 03/12/2021 09:26:49 03/12/2021 10:34:07 Health Concerns Section Related Observation LastModified by Organization Detai ls LastModified Time None Recorded Concern Status LastModified by Organization Details LastModified Time None Recorded Advance Directives Directive None Recorded Payers Encounter Date Sequence Insurance Name Policy Number Policy Rosa Covered Member ID Rosa Member ID Guarantor Name 02/23/2021 1 [place]) [id number] Javier Carson [id number] Javier Carson 03/12/2021 1 [place]) [id number] Javier Carson [id number] Javier Carson Notes Date Note Type Note Provider Name and Address Organization Details Recorded Time 02/23/2021 text/html HPI Notes: Ryley harris presents today [...] limit re-stiffening of TMJ if successful. Travis chowdary, [facility] 02/23/2021 15:56:38 [...] mild clicking at end DERICK Leos - [facility] 03/26/2021 09:25:08
--- OUTSIDE RECORDS SUMMARY | 2024-05-01 09:15 | XMS_ITS | Encounter Summary ---
Author Organization [facility] Address [address] [place] [address] Care Team Providers Care Twisting Press Operator Name Role Phone Woody Loo MD Primary Care Provider Marzena vailable Thierry Pearce MD Primary Care Provide r Thierry Pearce MD Unavailable [phone] Encounter Details Date Type Department Care Team (Late st Contact Info) Description 07/12/2011 MyC Medical Advice [facility] [address] [place] [address] Woody Loo MD XXXX RESIGNED/INACTIVE [...] documented as of this encounter Care Teams Twisting Press Operator Relationship Specialty Start Date End Date Woody Loo MD XXXX RESIGNED/INACTIVE XXXX PCP - General 08/07/9901/21 Thierry Pearce MD [address], [id number] [place] [address] PCP - General Family Practice 01/23/16 Thierry Pearce MD [address], [id number] [place] [address] Assigned PCP 01/25/16 04/15/24 documented as of this encounter
--- OUTSIDE RECORDS SUMMARY | 2024-05-01 09:15 | XMS_ITS | Encounter Summary ---
Author Organization [facility] Address [address] [place] [address] Care Team Providers Care Intake Rn Name Role Phone Milan Aguiar MD Primary Care Provider [phone] Reason for Visit * Reason Comments LAB RESULTS Encounter Details Date Type Department Care Team (Late st Contact Info) Description 04/26/2024 Telephone [facility] - Urology [address] [place] [address] Erin Brown, METAL WELDER, ASSOCIATE FINANCIAL ADVISOR [address] [place] [address] LAB RESULTS Social History Tobacco Use Types Packs/Day Years [...] as of this encounter Nursing Notes * Surekha Zuleta LPN - 04/26/2024 12:10 PM CDT Patient is wondering about his 24 hour urine results. Looks like you were going to send a [employer] message with results. Patient is concerned about the high oxylate levels. documented in this encounter Plan of Treatment Not on file documented as of this encounter Visit Diagnoses Not on filedocumented in this encounter Care Teams Intake Rn Relationship Specialty Start Date End Date Milan Aguiar MD [address] [place] [address] PCP - General Family Practice 05/02/23 documented as of this encounter
--- OUTSIDE RECORDS SUMMARY | 2024-05-01 09:15 | XMS_ITS | Encounter Summary ---
Author Organization [facility] Address [address] [place] [address] Care Team Providers Care Music Therapist Name Role Phone Milan Aguiar MD Primary Care Provider [phone] Encounter Details Date Type Department Care Team (Late st Contact Info) Description 01/17/2024 E-Visit [facility] [address] [place], [place] [address] [place] [address] Social History Tobacco Use Types Packs/Day Years [...] on filedocumented in this encounter Care Teams Music Therapist Relationship Specialty Start Date End Date Milan Aguiar MD [address] [place] [address] PCP - General Family Practice 05/02/23 documented as of this encounter
--- OUTSIDE RECORDS SUMMARY | 2024-05-01 09:15 | XMS_ITS | Clinical Summary ---
Author Organization [facility] Address [place], [place] [address] Care Team Providers Care Fish Tender Name Role Phone Milan Aguiar MD Primary Care Provider [phone] Allergies No known active allergies Medications Medication [...] Name Administration Dates Next Due COVID-19 vaccine (Drive.SG 30mcg/0.3mL) AGUSTO Rodgers 09/16/2020,08/26/2020 Family History Relation [...] same day) for age 18+ 04/13/2019 04/13/2018 RSV vaccine for adults or (1 - 1-dose 75+ series) 11/08/2019 COVID-19 vaccine series ( season) 2024 11/27/2021, 04/27/2021, 09/16/2020, Additional history exists Influenza for age 65+ 03/25/2024 Advance Directives * Full Code (Latest Code Status on File) Date Activated Date Inactivated Comments 03/17/2018 8:16 AM 03/17/2018 12:28 PM * Full Code Date Activated Date Inactivated Comments 10/16/2014 9:18 AM 10/17/2014 2:[address] atus confirmed with patient and RN present for discussion Care Teams Fish Tender Relationship Specialty Start Date End Date Milan Aguiar MD [address] [place] [address] PCP - General Family Practice 07/13/21
--- OUTSIDE RECORDS SUMMARY | 2024-05-01 09:15 | XMS_ITS | Data Portability ---
Author Organization [facility] Address [address] [place] [address] Care Team Providers Care Pedicab Driver Name Role Phone DEVANG ROONEY Primary Care Provider Assessment No assessment recorded. Plan of Treatment Reminders Order Date Submit Date Provider Last Modified By Organization Details Last Modified Time Details Appointments None recorded. Lab biopsy, prostate 2019 020 [facility], [address], [place], [address], 0 10:27:32 PSA, total, serum or plasma 2020 021 [facility], [address], [address], [place], [address], 1 12:55:32 Referral radiation oncologist referral - Please call patient to schedule leandro fonseca, thank you. 2020 021 YRN Hernandes MD, [address], [place], [address], 1 14:26:07 Procedures None recorded. Surgeries None [...] Name Description Value Unit Range Abnormal Flag Note LastModifiedBy Organization Detail LastModifiedTime 09/12/19 21 09/12/2020 PSA, total , serum or plasm a PSA, total 13.18 NG/mL 0.00-4 .00 high Not Available [facility] [address], [place], [address], 09/12/2020 12:55:32 09/12/19 21 09/12/2020 MRI, prost ate, w/wo contr ast No observ ation record ed. [email or web address] [facility] [address], [place], [address], 09/14/2020 10:16:24 Result Notes None recorded. Problems Name Problem SNOMED Code Status Onset Date Resolution Date Notes Provider Name and Address Organization Details Recorded Time Sensation as if urinary bladder still full 157096969 Active 2017 R39.14 : Sensation as if bladder still full Not Available [facility] 0 23:41:19 Clinical finding Active 2017 N40.1 : Desire for urination Not Available [facility] 0 23:41:19 Increased frequency of urination 738815219 Active 2018 R35.0 : Increased frequency of urination Not Available [facility] 0 23:41:19 Clinical finding Active 2015 N21.0 : Calculus in diverticul um of bladder Not Available [facility] 0 23:41:19 Clinical finding Active 2019 N20.0 : Staghorn calculus Not Available [facility] 0 23:41:19 Malignant tumor of prostate 889809999 Active 2015 C61 : Malignant tumor of prostate Not Available [facility] 0 23:41:19 Chronic prostatit is 03208799 Active 2015 N41.1 : Chronic prostatiti s Not Available [facility] 0 23:41:19 Urinary tract obstructi on 2954065 Active 2012 600.21 : HYPERPLASI A OF PROSTATE W/OBST Not Available [facility] 0 01:54:29 Benign prostatic hyperplas ia 394274734 Active 2012 600.21 : HYPERPLASI A OF PROSTATE W/OBST Not Available [facility] 0 01:54:29 Lower urinary tract symptoms 699511833 Active 2012 600.21 : HYPERPLASI A OF PROSTATE W/OBST Not Available [facility] 0 01:54:29 History of malignant neoplasm of prostate 817253083 Active 2012 V10.46 : PERSONAL HX OF PROSTATE CA Not Available [facility] 0 01:54:29 Problem Notes None recorded. 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/PSA RESULTS completed Hilary De [facility] 09/12/2020 11:10:07 03/27/20 20 Gentamicin Injection completed Francois Perez [facility] 03/27/2020 16:26:24 03/27/20 20 bg-cysto completed Javier Anguiano MD [address] [place] [address],[address], [address], [facility] 03/27/2020 13:32:05 03/27/20 20 bg-uronav completed Javier Anguiano MD [address] [place] [address],[address], [address], [facility] 03/27/2020 13:00:59 09/21/19 20 Colonoscopy thru stoma spx completed Not Available [facility] 01/03/2020 12:22:12 04/18/20 19 Us urine capacity measure completed Not Available [facility] 01/03/2020 12:22:11 03/07/20 18 Us urine capacity measure completed Not Available [facility] 01/03/2020 12:22:11 06/09/20 16 Cystoscopy completed Not Available [facility] 0 12:22:11 06/09/20 16 Us urine capacity measure completed Not Available [facility] 01/03/2020 12:22:11 01/23/20 16 Colonoscopy thru stoma spx completed Not Available [facility] 01/03/2020 12:22:11 01/02/20 15 Us urine capacity measure completed Not Available [facility] 01/03/2020 12:22:12 10/16/19 15 Prostatectomy (turp) completed Not Available [facility] 01/03/2020 12:22:11 09/09/19 15 Us urine capacity measure completed Not Available [facility] 01/03/2020 12:22:12 09/09/19 15 Cystoscopy completed Not Available [facility] 0 12:22:12 08/28/19 15 Us urine capacity measure completed Not Available [facility] 01/03/2020 12:22:11 08/28/19 15 Cystoscopy completed Not Available [facility] 0 12:22:12 02/23/20 14 Anal/urinary muscle study completed Not Available [facility] 01/03/2020 12:22:11 02/23/20 14 Electro-uroflowme try first completed Not Available [facility] 01/03/2020 12:22:12 02/23/20 14 Cystometrogram w/vp revenue cycle&up completed Not Available [facility] 01/03/2020 12:22:12 02/23/20 14 Intraabdominal pressure test completed Not Available [facility] 01/03/2020 12:22:12 01/25/20 14 Us urine capacity measure completed Not Available [facility] 01/03/2020 12:22:12 08/22/19 14 Us urine capacity measure completed Not Available [facility] 01/03/2020 12:22:12 01/23/20 13 Repair detached retina completed Not Available [facility] 01/03/2020 12:22:12 01/23/20 00 Prp i/lottie init reduc >5 yr completed Not Available [facility] 01/03/2020 12:22:12 01/24/19 99 Prostatectomy (turp) completed Not Available [facility] 01/03/2020 12:22:11 01/22/19 57 Appendectomy add-on completed Not Available [facility] 01/03/2020 12:22:12 Removal of tonsils completed Not Available [facility] 01/03/2020 12:22:12 Imaging Results Imaging Date Name Status LastModified by Organiz ation Details LastModified Time 09/12/2020 MRI, prostate, w/wo contrast completed [email or web address] [facility] [address], [place], [address], 09/14/2020 10:16:24 Procedure Notes None recorded. Medical [...] Available Not Available Not Available amoxicillin 875 mg-potassiu m clavulanate 125 mg tablet 03/10 completed [...] Updated DateTime 04/04/2020 180.34 cm 24 kg/m2 81423.89 g [facility] 04/04/2020 13:05:53 Date Recorded Body height Body mass index (BMI) Body weight Provider Name and Address Organization Details Last Updated DateTime 09/29/2020 180.34 cm 24.4 kg/m2 49102.66 g [facility] 09/29/2020 17:04:33 Social History Question Answer Notes LastModified by Organizat ion Details LastModified Time Tobacco Smoking Status Former Smoker Not Available [facility] 01/03/2020 03:13:17 What Is Your Level Of [...] elastcigarette Information not available 09/29/2020 Race White ann1.Luther Information n ot available 01/03/2020 Ethnicity Not /Latin o Information not available 09/29/2020 Preferred Language Wolof Information not available 09/29/2020 Recreational Drug Use [...] Mental Status None recorded. Family History Nothing Reported Notes:Diabetes:Grandmother Cancer, lung:Father Medical History Condition Response Diabetes N Bleeding Disorder N High Blood Pressure N Kidney Stones Y High Cholesterol N GERD/Acid Reflux N Heart Disease N Cancer Y Lung Disease N Depression N Immunizations Vaccine Type Date Status Provider Name and Address Organization Details Recorded Time Pneumococcal conjugate PCV 13 07/25/2015 [facility] 09/29/2020 17:05:26 Past Encounters Encounter ID Performer Location Encounter Start Date Encounter Closed Date Diagnosis/Indication Diagnosis SNOMED-CT Code Diagnosis ICD10 Code [id number] Javier Anguiano MD [facility] [address] [facility] [place] [address] 03/10/2020 07:56:57 03/10/2020 17:04:05 Kidney stone 65197096 N20.0 Prostate s pecific antigen above reference range 802769032 R97.20 He hematuria 76908760 5 R31.0 [id number] MD Aaron [facility] [address] [place] [address] [address] [place] [address] 03/27/2020 12:08:57 03/27/2020 13:35:54 Prostate specific antigen above reference range 887721467 R97.20 He hematuria 52158661 5 R31.0 [id number] Francois [facility] [address] [place] [address] 03/27/2020 12:11:03 03/27/2020 16:34:45 Prostate specific antigen above reference range 402905001 R97.20 [id number] Javier Anguiano MD [address] [address] 04/04/2020 12:48:19 04/18/2020 17:16:57 Malignant tumor of prostate 675016022 C61 [id number] Hilary De [facility] [address] [place] [address] 09/12/2020 10:58:50 09/12/2020 11:21:30 History of malignant neoplasm of prostate 892316368 Z85.46 [id number] Javier Anguiano MD [address] [address] 09/29/2020 16:55:09 10/01/2020 15:49:28 Prostate specific antigen above reference range 753522000 R97.20 Malignant tumor of prostate 189478014 C61 Health Concerns Section Related Observation LastModified by Organization Detai ls LastModified Time None Recorded Concern Status LastModified by Organization Details LastModified Time None Recorded Advance Directives Directive None Recorded Payers Encounter Date Sequence Insurance Name Policy Number Policy Rosa Covered Member ID Rosa Member ID Guarantor Name 03/27/2020 1 [place] [id number] Javier Carson [id number] Javier Carson 03/27/2020 1 [place] [id number] Javier Carson [id number] Javier Carson 04/04/2020 1 [place] [id number] Javier Carson [id number] Javier Carson 04/04/2020 1 [place] [employer] Javier Carson [id number] Javier Carson 09/12/2020 1 [place] [id number] Javier Carson [id number] Javier Carson 09/29/2020 1 [place] COST [id number] Javier Carson [id number] Javier Carson Notes Date Note Type Note Provider Name and Address Organization Details Recorded Time 03/27/2020 text/html HPI Notes: PSA 11.9 Javier Anguiano MD [address] [address], [place], [address], [facility] 03/27/2020 13:32:41 04/04/2020 text/html HPI Notes: [...] ____. bg-Prostate Standard Template: Javier Anguiano MD [address] [place] [address],[address], [place], [address], [facility] 04/24/2020 09:21:32 09/29/2020 text/html HPI Notes: Patie nt was diagnosed with prostate cancer on 03/27/2020 Initial PSA: 11.9 Recent PSA: 13.18 Verna Score: 4+3 Stage: T2a Number cores positive: 03, Cores with more the 35% involved: 0 MRI: 09/12/2020 - PIRAD5 Prostate volume: 100 grams MRI PIRAD Lesion(s) Score: 5 Laterality: Left Grade: 4+3 Zone: PZ Volume: 10% Capsule involvement: No Repeat biopsy: No bg-Prostate Standard Template: Javier Anguiano MD [address] [place] [address],[address], [place], [address], [facility] 09/29/2020 17:17:05
--- OUTSIDE RECORDS SUMMARY | 2024-05-01 09:15 | XMS_ITS | Encounter Summary ---
Author Organization [facility] Address [address] [place] [address] Care Team Providers Care Poker Manager Name Role Phone Woody Loo MD Primary Care Provider Marzena vailable Thierry Pearce MD Primary Care Provide r Thierry Pearce MD Unavailable [phone] Encounter Details Date Type Department Care Team (Late st Contact Info) Description 10/06/2011 MyC Medical Advice [facility] [address] [place] [address] Debi Larsen Social History Tobacco [...] documented as of this encounter Care Teams Poker Manager Relationship Specialty Start Date End Date Woody Loo MD XXXX RESIGNED/INACTIVE XXXX PCP - General 08/07/9901/21 Thierry Pearce MD [address], [id number] [place] [address] PCP - General Family Practice 01/23/16 Thierry Pearce MD [address], [address] [place] [address] Assigned PCP 01/25/16 04/15/24 documented as of this encounter
--- OUTSIDE RECORDS SUMMARY | 2024-05-01 09:15 | XMS_ITS | Encounter Summary ---
Author Organization [employer] Address [address] [place] [address] Care Team Providers Care Machine Container Washer Name Role Phone Milan Aguiar MD Primary Care Provider [phone] Encounter Details Date Type Department Care Team (Late st Contact Info) Description 04/20/2024 Notes/Orders [facility] - Urology [address] [facility] [place] [address] Erin Brown, MOLECULAR GENETICIST, DIRECTOR HOME HEALTH [address] [place] [address] Calculus of upper urinary tract (Primary Dx) Social History Tobacco Use Types Packs/Day Years [...] on file documented as of this encounter Results * (ABNORMAL) Supersaturation Profile, Urine (04/20/2024 9:21 AM CDT) Creatinine, Urine - per 24h 1584 800 - 2100 mg/d 04/26/2024 8:13 AM CDT [facility] Creatinine, Urine - per volume 66 mg/dL 04/26/2024 8:13 AM [facility] Oxalate, Urine MG/Day 94(H) 16 - 49 mg/d 04/26/2024 8:13 AM [facility] Comment: REFERENCE INTERVAL: Oxalate, Urine - per 24h Access complete set of age- and/or gender-specific reference intervals for this test in the [facility] Test Directory (BoxC). This test was developed and its performance characteristics determined by [facility]. It has not been cleared or approved by the US Food and Drug Administration. This test was performed in a CLIA certified laboratory and is intended for clinical purposes. Oxalate, Urine MG/L 39 mg/L 04/26 8:13 AM [facility] Sulfate, Urine per 24 hours 26 6 - 30 mmol/d 04/26/2024 8:13 AM [facility] Comment: INTERPRETIVE INFORMATION: Sulfate, Urine Reference intervals for random urine samples have not been established. This test was developed and its performance characteristics determined by [facility]. It has not been cleared or approved by the US Food and Drug Administration. This test was performed in a CLIA certified laboratory and is intended for clinical purposes. Sulfate, Urine per Volume 11 mmol/L 04/26/2024 8:13 AM [facility] pH, Urine 6.27 5.00 - 7.50 04/26/2024 8:[address] [facility] Urine Supersaturation, CAOX 9.43 04/26/2024 8:13 AM [facility] Comment: Increased risk for formation of Calcium Oxalate Calculi. Urine Supersaturation, CAHPO4 1.48 04/26/2024 8:13 AM [facility] Comment: No increased risk of Calcium Hydrogen Phosphate (Brushite) Calculi. Urine Supersaturation, UA CALC 0.25 04/26/2024 8:13 AM [facility] Comment: No increased risk of Uric Acid Calculi. Urine Supersaturation Interpretation Abnormal( A) 04/26/2024 8:13 AM [facility] Comment: Relative Supersaturation ? Reduced risk <::> Increased risk ? CaOx ? 0.0 ! ? ::-->9.43 ?! ?? 30.0 ? CaHPO4 ? (Brushite)0.0 ! 1.48<-------:: ? ! ?4.0 ? Uric Acid ??0.6 ! ?0.25<--:: ? ! ?3.0 INTERPRETIVE INFORMATION: Supersaturation Profile, Urine The values determined for this specimen are placed on the chart to indicate the approximate risk associated with the particular concentrations. Increased risk is to the right of center; decreased risk, to the left. Relative supersaturation calculated for calcium oxalate, calcium hydrogen phosphate (brushite) and uric acid calculi is displayed. Relative risk increases from the middle to the right side of this chart. This test was developed and its performance characteristics determined by [facility]. It has not been cleared or approved by the US Food and Drug Administration. This test was performed in a CLIA certified laboratory and is intended for clinical purposes. Calcium, Urine per Volume 9.9 mg/dL 04/26/2024 8:13 AM [facility] Calcium, Urine per 24 Hours 238 100 - 250 mg/d 04/26/2024 8:13 AM [facility] Comment: INTERPRETIVE INFORMATION: CALCIUM, URINE - mg/day Calcium-free diet: 5-40 mg/d Low calcium diet (800 mg/d or less): 50-150 mg/d Average calcium diet (about 800 mg/d): 100-250 mg/d High calcium diet (800 mg/d or greater): greater than 250 mg/d Sodium, Urine per Volume 62 mmol/L 04/26/2024 8:13 AM [facility] Sodium, Urine per 24 Hours 149 51 - 286 mmol/d 04/26/2024 8:13 AM [facility] Uric Acid, Urine per 24 Hours 684 250 - 750 mg/d 04/26/2024 8:13 AM [facility] Uric Acid, Urine per Volume 28.5 mg/dL 04/26/2024 8:13 AM [facility] Magnesium, Urine per Volume 7.1 mg/dL 04/26/2024 8:13 AM [facility] Magnesium, Urine per 24 Hours 170 12 - 199 mg/d 04/26/2024 8:13 AM [facility] Phosphorus, Urine per Volume 40 mg/dL 04/26/2024 8:13 AM [facility] Phosphorus, Urine per 24 Hours 960 400 - 1300 mg/d 04/26/2024 8:13 AM [facility] Potassium, Urine per Volume 36 mmol/L 04/26/2024 8:13 AM [facility] Potassium, Urine per 24 Hours 86 25 - 125 mmol/d 04/26/2024 8:13 AM [facility] Chloride, Urine per Volume 56 mmol/L 04/26/2024 8:13 AM [facility] Chloride, Urine per 24 Hours 134(L) 140 - 250 mmol/d 04/26/2024 8:[address] [facility] EER Supersaturation Profile, Urine See Note 04/26/2024 8:[address] [facility] Comment: Authorized individuals can access the [facility] Enhanced Report using the following link: [email or web address] Performed By: [facility] [employer] [address] [place] [address] Inventory Management Specialist: Santiago King MD, PhD CLIA Number: [id number] Total Volume 2400 mL 04/26/2024 8:13 AM [facility] Hours Collected 24 hr 8:[address] [facility] Comment: Per 24h calculations are provided to aid interpretation for collections with a duration of 24 hours and an average daily urine volume. For specimens with notable deviations in collection time or volume, ratios of analytes to a corresponding urine creatinine concentration may assist in result interpretation. Citric Acid Urine - Per Volume 498 mg/L 04/26/2024 8:13 AM CDT [facility] Citric Acid Urine - Per 24H 1195 320 - 1240 mg/d 04/26/2024 8:13 AM CDT [facility] Urine URINE SPECIMEN COLLECTION, 24 HOURS / Unknown Non-blood Collection / Unknown 04/20/2024 9:21 AM CDT 04/20/2024 9:49 AM CDT Erin Brown APRN, CNP LAB_1 [facility] [address], [place] [address] [place] [address] * Intact PTH (04/20/2024 9:21 AM CDT) Intact PTH 94 10 - 100 pg/mL 04/20/2024 3:24 PM CDT [facility] Blood Venipuncture / Unknown 04/20/2024 9:21 AM CDT 04/20/2024 9:26 AM CDT Erin Brown APRN, CNP LAB_1 Performing Organization Address City/[facility]/ZIP Co de Phone Number [facility] [address] [place], [place] [id number] [place] [address] * Uric Acid (04/20/2024 9:21 AM CDT) Uric Acid 6.5 3.5 - 7.2 mg/dL 04/20/2024 12:03 PM CDT [facility] Blood Venipuncture / Unknown 04/20/2024 9:21 AM CDT 04/20/2024 9:26 AM CDT Erin Brown APRN, CNP LAB_1 [facility] [address] [place] [address], [facility] * Basic Metabolic Panel (04/20/2024 9:21 AM CDT) Sodium 140 136 - 145 mmol/L 04/20/2024 12:03 PM [facility] Potassium 3.8 3.5 - 5.1 mmol/L 04/20/2024 12:03 PM [facility] Chloride 103 98 - 109 mmol/L 04/20/2024 12:03 PM [facility] CO2 27 20 - 29 mmol/L 04/20/2024 12:03 PM [facility] Anion Gap 10 6 - 16 mmol/L 04/20/2024 12:03 PM [facility] Calcium 10.1 8.4 - 10.4 mg/dL 04/20/2024 12:03 PM [facility] BUN 17 7 - 26 mg/dL 04/20/2024 12:03 PM [facility] Creatinine 0.86 0.73 - 1.18 mg/dL 04/20/2024 12:03 PM [facility] Glucose 82 70 - 100 mg/dL 04/20/2024 12:03 PM [facility] Comment:The given reference range is for the fasting state. Non-fasting reference range for glucose is 70 - 180 mg/dL. GFR, Estimated >60 >60 mL/min/1.7 3m2 04/20/2024 12:03 PM [facility] Hours Fasting 12.0 8 - 12 Hours 04/20/2024 12:03 PM [facility] Blood Venipuncture / Unknown 04/20/2024 9:21 AM CDT 04/20/2024 9:26 AM [facility] Erin Brown APRN, CNP LAB_1 [facility] [address] [place] [address], [facility] documented in this encounter Visit Diagnoses Diagnosis Calculus of upper urinary tract- Primary documented in this encounter Care Teams Machine Container Washer Relationship Specialty Start Date End Date Milan Aguiar MD [address] [place] [address] PCP - General Family Practice 05/02/23 documented as of this encounter
--- OUTSIDE RECORDS SUMMARY | 2024-05-01 09:15 | XMS_ITS | Clinical Summary ---
Author Organization [facility] Address [address] [place] [address] Care Team Providers Care Supervisor Malted Milk Name Role Phone Milan Aguiar MD Primary Care Provider [phone] Source Comments You are receiving this document as you are listed as the primary care provider,follow-up provider, or the patient has been referred to you for consultation.This is in compliance with the Medicare and[facility] EHR Incentive Program,which states Providers who transition their patient to another setting of careor provider of care or refers their patient to another provider of care shouldprovide summary care record for each transition of care or referral. [facility] Allergies No known active allergies Medications Medication Sig Dispensed Refills Start Date End Date Status multivitamin with minerals tablet Take 1 Tablet by mouth daily. Active cholecalciferol (VITAMIND3) 50 MCG (2000 UT) tablet Take 1 Tablet (2,000 Units) by mouth daily. Active oxyCODONE (ROXICODONE) 5 MG immediate release tablet Take 1 Tablet (5 mg) by mouth every 4 hours as needed for Pain. 10 Tablet 05/05/2023 Active hydroCHLOROthiazi de (ORETIC) 25 MG tabletIndications :Kidney stone Take 1 Tablet (25 mg) by mouth daily. 90 Tablet 3 04/23/2024 Active hydroCHLOROthiazi de (ORETIC) 25 MG tablet TAKE ONE TABLET BY MOUTH ONE TIME DAILY 90 Tablet 3 08/12/2022 04/23/2024 Discontinued( *Med change OR same med OR reorder, new dose/directio ns) Active Problems Problem Noted Date Diagnosed Date Kidney stone 03/25/2023 Overview (03/25/2023): Added automatically from request for surgery [id number] Benign prostatic hyperplasia with lower urinary tract symptoms 02/03/2021 Overview (02/03/2021): Added automatically from request for surgery [id number] Urethral stone 02/03/2021 Overview (02/03/2021): Added automatically from request for surgery [id number] Prostate cancer 01/15/2021 Lateral epicondylitis 02/05/2011 Overview (03/16/2017): Lateral epicondylitis of elbow Encounters Date Type Department Care Team Description 04/26/[address] [facility] - Urology [address] [facility] [place] [address] Erin Brown APRN, PROFESSOR OF BUSINESS ADMINISTRATION LAB RESULTS 04/23/2024 Notes/Orders [facility] [address] [address] [place] [address] Surekha Zuleta LPN Kidney stone (Primary Dx) 04/20/2024 9:00 AM CDT Lab Visit [facility] [address] [place] [address] Calculus of upper urinary tract 04/20/2024 Notes/Orders [facility] - Urology [address] [place] [address] Erin Brown APRN, PROFESSOR OF BUSINESS ADMINISTRATION Calculus of upper urinary tract (Primary Dx) from Last 3 Months Family History Medical [...] Comments Blood Pressure 136/81 09/09/2023 10:59 AM [employer] Pulse 70 09/09/2023 10:59 AM [employer]RIC[employer] Temperature 36.4 ??C (97.6 ??F) 09/09/2023 1 0:59 AM [employer] Respiratory Rate 13 05/02/2023 4:30 PM CDT [...] Services) 1945 Medicare Annual Wellness Visit 1945 RSV (1 - 1-dose 75+ series) 11/08/2019 COVID-19 Vaccine ( season) 2024 11/27/2021, 04/27/2021, 09/16/2020, Additional history exists Influenza (#1) 2024 07/02/2021, 05/08/2019 DTaP/Tdap/Td (3 - Tdap) 12/02/2031 12/01/2021, 05/21 HepA Aged Out 06/14/2012 No longer eligi ble based on patient's age to complete this topic Pneumococcal 65+ Yrs Completed 11/11/2015, 08/27/19 15 Zoster/Shingles Completed 05/08/2019, 0408/2018, 09/27/2013 HepB Aged Out No longer eligi ble based on patient's age to complete this topic Hib Aged Out No longer eligi ble based on patient's age to complete this topic IPV (Polio) Aged Out No longer eligi ble based on patient's age to complete this topic Infant RSV Aged Out No longer eligi ble based on patient's age to complete this topic MCV4 Aged Out No longer eligi ble based on patient's age to complete this topic Medical Devices Implanted Type Area Audio Visual Specialist Device Identifier Shelf Expiration Date Model / Serial / Lot Stent Ureteral Inlay 6fr 28cm - [id number] Implanted:Qty: 1 on 05/02/2023 by Aleksandra Richey MD at [facility] DEVICE Left: URETER [employer] 09/06/2027 [id number] / / [id number] Description:URETERAL STENT Procedures Procedure Name Priority Date/Time Associated Diagnosis Comments SUPERSATURATION PROFILE, URINE 24 HR Routine 04/20/2024 9:21 AM CDT Calculus of upper urinary tract INTACT PTH Routine 04/20/2024 9:21 AM CDT Calculus of upper urinary tract URIC ACID Routine 04/20/2024 9:21 AM CDT Calculus of upper urinary tract BASIC METABOLIC PANEL Routine 04/20/2024 9:21 AM CDT Calculus of upper urinary tract from Last 3 Months Results * (ABNORMAL) Supersaturation Profile, Urine (04/20/2024 9:21 AM CDT) Creatinine, Urine - per 24h 1584 800 - 2100 mg/d 04/26/2024 8:13 AM CDT [email or web address] Creatinine, Urine - per volume 66 mg/dL 04/26/2024 8:13 AM CDT [facility] Oxalate, Urine MG/Day 94(H) 16 - 49 mg/d 04/26/2024 8:13 AM CDT [facility] Comment: REFERENCE INTERVAL: Oxalate, Urine - per 24h Access complete set of age- and/or gender-specific reference intervals for this test in the [email or web address] Test Directory ([employer]). This test was developed and its performance characteristics determined by [facility]. It has not been cleared or approved by the US Food and Drug Administration. This test was performed in a CLIA certified laboratory and is intended for clinical purposes. Oxalate, Urine MG/L 39 mg/L 04/26 8:13 AM CDT [email or web address] Sulfate, Urine per 24 hours 26 6 - 30 mmol/d 04/26/2024 8:13 AM CDT [facility] Comment: INTERPRETIVE INFORMATION: Sulfate, Urine Reference intervals for random urine samples have not been established. This test was developed and its performance characteristics determined by [facility]. It has not been cleared or approved by the US Food and Drug Administration. This test was performed in a CLIA certified laboratory and is intended for clinical purposes. Sulfate, Urine per Volume 11 mmol/L 04/26/2024 8:13 AM [facility] pH, Urine 6.27 5.00 - 7.50 04/26/2024 8:13 AM [facility] Urine Supersaturation, CAOX 9.43 04/26/2024 8:13 AM [facility] Comment: Increased risk for formation of Calcium Oxalate Calculi. Urine Supersaturation, CAHPO4 1.48 04/26/2024 8:13 AM [facility] Comment: No increased risk of Calcium Hydrogen Phosphate (Brushite) Calculi. Urine Supersaturation, UA CALC 0.25 04/26/2024 8:13 AM [facility] Comment: No increased risk of Uric Acid Calculi. Urine Supersaturation Interpretation Abnormal( A) 04/26/2024 8:13 AM [facility] Comment: Relative Supersaturation ? Reduced risk <::> [...] developed and its performance characteristics determined by [facility]. It has not been cleared or approved by the US Food and Drug Administration. This test was performed in a CLIA certified laboratory and is intended for clinical purposes. Calcium, Urine per Volume 9.9 mg/dL 04/26/2024 8:13 AM [facility] Calcium, Urine per 24 Hours 238 100 - 250 mg/d 04/26/2024 8:13 AM [email or web address] Comment: INTERPRETIVE INFORMATION: CALCIUM, URINE - mg/day Calcium-free diet: 5-40 mg/d Low calcium diet (800 mg/d or less): 50-150 mg/d Average calcium diet (about 800 mg/d): 100-250 mg/d High calcium diet (800 mg/d or greater): greater than 250 mg/d Sodium, Urine per Volume 62 mmol/L 04/26/2024 8:13 AM [facility] Sodium, Urine per 24 Hours 149 51 - 286 mmol/d 04/26/2024 8:13 AM [facility] Uric Acid, Urine per 24 Hours 684 250 - 750 mg/d 04/26/2024 8:13 AM [facility] Uric Acid, Urine per Volume 28.5 mg/dL 04/26/2024 8:13 AM [facility] Magnesium, Urine per Volume 7.1 mg/dL 04/26/2024 8:13 AM [facility] Magnesium, Urine per 24 Hours 170 12 - 199 mg/d 04/26/2024 8:13 AM [facility] Phosphorus, Urine per Volume 40 mg/dL 04/26/2024 8:13 AM [facility] Phosphorus, Urine per 24 Hours 960 400 - 1300 mg/d 04/26/2024 8:13 AM [facility] Potassium, Urine per Volume 36 mmol/L 04/26/2024 8:13 AM T [facility] Potassium, Urine per 24 Hours 86 25 - 125 mmol/d 04/26/2024 8:13 AM T [facility] Chloride, Urine per Volume 56 mmol/L 04/26/2024 8:13 AM T [facility] Chloride, Urine per 24 Hours 134(L) 140 - 250 mmol/d 04/26/2024 8:13 AM T [facility] EER Supersaturation Profile, Urine See Note 04/26/2024 8:13 AM T [facility] Comment: Authorized individuals can access the [facility] Enhanced Report using the following link: [email or web address] Performed By: [facility] [address] [place] [address] Scaler: Santiago King MD, PhD CLIA Number: [id number] Total Volume 2400 mL 04/26/2024 8:13 AM [facility] Hours Collected 24 hr 8:13 AM T [email or web address] Comment: Per 24h calculations are provided to aid interpretation for collections with a duration of 24 hours and an average daily urine volume. For specimens with notable deviations in collection time or volume, ratios of analytes to a corresponding urine creatinine concentration may assist in result interpretation. Citric Acid Urine - Per Volume 498 mg/L 04/26/2024 8:13 AM T [facility] Citric Acid Urine - Per 24H 1195 320 - 1240 mg/d 04/26/2024 8:13 AM [email or web address] Urine URINE SPECIMEN COLLECTION, 24 HOURS / Unknown Non-blood Collection / Unknown 04/20/2024 9:21 AM CDT 04/20/2024 9:49 AM CDT Erin Brown APRN, CNP LAB_1 [facility] [address] [place] [address] [place] [address] * Intact PTH (04/20/2024 9:21 AM CDT) [facility] Intact PTH 94 10 - 100 pg/mL 04/20/2024 3:24 PM [facility] Blood Venipuncture / Unknown 04/20/2024 9:21 AM CDT 04/20/2024 9:26 AM CDT Erin Brown DALILA, PROFESSOR OF BUSINESS ADMINISTRATION LAB_1 [facility] [address] * Basic Metabolic Panel (04/20/2024 9:21 AM CDT) Pathologist [facility] Sodium 140 136 - 145 mmol/L 04/20/2024 12:[address] [facility] Potassium 3.8 3.5 - 5.1 mmol/L 04/20/2024 12:[address] [facility] Chloride 103 98 - 109 mmol/L 04/20/2024 12:[address] [facility] CO2 27 20 - 29 mmol/L 04/20/2024 12:[address] [facility] Anion Gap 10 6 - 16 mmol/L 04/20/2024 12:[address] [facility] Calcium 10.1 8.4 - 10.4 mg/dL 04/20/2024 12:[address] [facility] BUN 17 7 - 26 mg/dL 04/20/2024 12:[address] [facility] Creatinine 0.86 0.73 - 1.18 mg/dL 04/20/2024 12:[address] [facility] Glucose 82 70 - 100 mg/dL 04/20/2024 12:[address] [facility] Comment:The given reference range is for the fasting state. Non-fasting reference range for glucose is 70 - 180 mg/dL. GFR, Estimated >60 >60 mL/min/1.7 3m2 04/20/2024 12:[address] [facility] Hours Fasting 12.0 8 - 12 Hours 04/20/2024 12:[address] [facility] Blood Venipuncture / Unknown 04/20/2024 9:21 AM CDT 04/20/2024 9:26 AM CDT Erin Maxwell Kevin CONNER CNP LAB_1 Performing Organization Address [facility]/ZIP Co de Phone Number [facility] [address] [place] [address] * Uric Acid (04/20/2024 9:21 AM CDT) Uric Acid 6.5 3.5 - 7.2 mg/dL 04/20/2024 12:03 PM CDT [facility] Blood Venipuncture / Unknown 04/20/2024 9:21 AM CDT 04/20/2024 9:26 AM CDT Erin Maxwell Kevin CONNER CNP LAB_1 Performing Organization Address [facility] Co de Phone Number [facility] [address] [place] [address] from Last 3 Months Advance Directives * Full Code (Latest Code Status on File) Date Activated Date Inactivated Comments 03/16/2021 1:12 PM 03/17/2021 4:00 PM Care Teams Supervisor Malted Milk Relationship Specialty Start Date End Date Milan Aguiar MD [address] [place] [address] PCP - General Family Practice 05/02/23
--- OUTSIDE RECORDS SUMMARY | 2024-05-01 09:15 | XMS_ITS ---
Author Organization [employer] Address [address] [place] [address] Care Team Providers Care Commercial Credit Officer Name Role Phone Milan Aguiar MD Primary Care Provider [phone] Active Problems Problem Noted Date Diagnosed Date Kidney stone 03/25/2023 Overview (03/25/2023): Added automatically from request for surgery [id number] Benign prostatic hyperplasia with lower urinary tract symptoms 02/03/2021 Overview (02/03/2021): Added automatically from request for surgery [id number] Urethral stone 02/03/2021 Overview (02/03/2021): Added automatically from request for surgery [id number] Prostate cancer 01/15/2021 Lateral epicondylitis 02/05/2011 Overview (03/16/2017): Lateral epicondylitis of elbow Current Oncology Plans No current plan information found. Past Plans SUPPORTIVE CARE Plan Name Start Date Discontinue Date Treatment Medications Discontinue Reason Plan Provider Cycles LEUPROLIDE DEPOT (84D:1) 1 12/28/2021 alteplase (CATHFLO ACTIVASE)hepar inleuprolide (3 month) (LUPRON DEPOT)sodium chloride 0.9% Therapy Complete Piero Castro MBBS 4 of 8 cycles started LEUPROLIDE DEPOT (168D) 1 01/22/2021 leuprolide (6 month) (LUPRON DEPOT) Other Piero Castro MBBS Treatment not started Radiation Treatments * No radiation treatments are documented for this patient in [facility]. Treatments may have been administered in another system.
--- OUTSIDE RECORDS SUMMARY | 2024-05-01 09:15 | XMS_ITS | Encounter Summary ---
Author Organization [facility] Address [address] [place] [address] Care Team Providers Care Machine Clothing Worker Name Role Phone Milan Aguiar MD Primary Care Provider [phone] Encounter Details Date Type Department Care Team (Late st Contact Info) Description 01/11/2024 E-Visit [facility] Nutrition [address] [place], [place] [id number] [place] [address] Social History Tobacco Use Types Packs/Day Years [...] on filedocumented in this encounter Care Teams Machine Clothing Worker Relationship Specialty Start Date End Date Milan Aguiar MD [address] [place] [address] PCP - General Family Practice 05/02/23 documented as of this encounter
--- OUTSIDE RECORDS SUMMARY | 2024-05-01 09:15 | XMS_ITS | Encounter Summary ---
Author Organization [facility] Address [address], [place] [address] Care Team Providers Care Fabric Worker Supervisor Name Role Phone Milan Aguiar MD Primary Care Provider [phone] Encounter Details Date Type Department Care Team (Late st Contact Info) Description 04/23/2024 Notes/Orders [facility]lee Monique Mullins [address] [facility] [address] [place] [address] Surekha Zuleta LPN Kidney stone (Primary Dx) Social History Tobacco Use Types [...] as of this encounter Visit Diagnoses Diagnosis Kidney stone- Primary Calculus of kidney documented in this encounter Care Teams Fabric Worker Supervisor Relationship Specialty Start Date End Date Milan Aguiar MD [address] [place] [address] PCP - General Family Practice 05/02/23 documented as of this encounter
--- OUTSIDE RECORDS SUMMARY | 2024-05-01 09:15 | XMS_ITS | Encounter Summary ---
Author Organization [facility] Address [address] [place] [address] Care Team Providers Care Waste Disposal Leakage Tester Name Role Phone Milan Aguiar MD Primary Care Provider [phone] Encounter Details Date Type Department Care Team (Late st Contact Info) Description 04/20/2024 9:00 AM CDT Lab Visit [facility] [address] [place] [address] Calculus of upper urinary tract Social History Tobacco Use Types Packs/Day Years [...] AM CDT Calculus of upper urinary tract documented in this encounter Results * (ABNORMAL) Supersaturation Profile, Urine (04/20/2024 9:21 AM CDT) Creatinine, Urine - per 24h 1584 800 - 2100 mg/d 04/26/2024 8:13 AM CDT [facility] Creatinine, Urine - per volume 66 mg/dL 04/26/2024 8:13 AM CDT [facility] Oxalate, Urine MG/Day 94(H) 16 - 49 mg/d 04/26/2024 8:13 AM CDT [facility] Comment: REFERENCE INTERVAL: Oxalate, Urine - per 24h Access complete set of age- and/or gender-specific reference intervals for this test in the [employer] Test Directory ([email or web address]). This test was developed and its performance characteristics determined by [employer] [facility]. It has not been cleared or approved by the [place] Food and Drug Administration. This test was performed in a CLIA certified laboratory and is intended for clinical purposes. Oxalate, Urine MG/L 39 mg/L 04/26 8:13 AM CDT [facility] Sulfate, Urine per 24 hours 26 6 - 30 mmol/d 04/26/2024 8:13 AM T [facility] Comment: INTERPRETIVE INFORMATION: Sulfate, Urine Reference intervals for random urine samples have not been established. This test was developed and its performance characteristics determined by [employer] [facility]. It has not been cleared or approved by the [place] Food and Drug Administration. This test was performed in a CLIA certified laboratory and is intended for clinical purposes. Sulfate, Urine per Volume 11 mmol/L 04/26/2024 8:13 AM CDT [facility] pH, Urine 6.27 5.00 - 7.50 04/26/2024 8:13 AM CDT [facility] Urine Supersaturation, CAOX 9.43 04/26/2024 8:13 AM CDT [facility] Comment: Increased risk for formation of Calcium Oxalate Calculi. Urine Supersaturation, CAHPO4 1.48 04/26/2024 8:13 AM CDT [facility] Comment: No increased risk of Calcium Hydrogen Phosphate (Brushite) Calculi. Urine Supersaturation, UA CALC 0.25 04/26/2024 8:13 AM CDT [facility] Comment: No increased risk of Uric Acid Calculi. Urine Supersaturation Interpretation Abnormal( A) 04/26/2024 8:13 AM [facility] Comment: Relative Supersaturation ? Reduced risk <::> [...] developed and its performance characteristics determined by [employer]. It has not been cleared or approved by the [place] Food and Drug Administration. This test was performed in a CLIA certified laboratory and is intended for clinical purposes. Calcium, Urine per Volume 9.9 mg/dL 04/26/2024 8:13 AM [facility] Calcium, Urine per 24 Hours 238 100 - 250 mg/d 04/26/2024 8:13 AM [facility] Comment: INTERPRETIVE INFORMATION: CALCIUM, URINE - mg/day Calcium-free diet: 5-40 mg/d Low calcium diet (800 mg/d or less): 50-150 mg/d Average calcium diet (about 800 mg/d): 100-250 mg/d High calcium diet (800 mg/d or greater): greater than 250 mg/d Sodium, Urine per Volume 62 mmol/L 04/26/2024 8:[address] [facility] Sodium, Urine per 24 Hours 149 51 - 286 mmol/d 04/26/2024 8:[address] [facility] Uric Acid, Urine per 24 Hours 684 250 - 750 mg/d 04/26/2024 8:[address] [facility] Uric Acid, Urine per Volume 28.5 mg/dL 04/26/2024 8:[address] [facility] Magnesium, Urine per Volume 7.1 mg/dL 04/26/2024 8:[address] [facility] Magnesium, Urine per 24 Hours 170 12 - 199 mg/d 04/26/2024 8:[address] [facility] Phosphorus, Urine per Volume 40 mg/dL 04/26/2024 8:[address] [facility] Phosphorus, Urine per 24 Hours 960 400 - 1300 mg/d 04/26/2024 8:[address] [facility] Potassium, Urine per Volume 36 mmol/L 04/26/2024 8:[address] [facility] Potassium, Urine per 24 Hours 86 25 - 125 mmol/d 04/26/2024 8:[address] [facility] Chloride, Urine per Volume 56 mmol/L 04/26/2024 8:[address] [facility] Chloride, Urine per 24 Hours 134(L) 140 - 250 mmol/d 04/26/2024 8:[address] [facility] [employer] EER Supersaturation Profile, Urine See Note 04/26/2024 8:13 AM [facility] Comment: Authorized individuals can access the [facility] Enhanced Report using the following link: [email or web address] Performed By: [employer] [address] [place] [address] Tree Scout: Santiago King MD, PhD CLIA Number: [id number] Total Volume 2400 mL 04/26/2024 8:13 AM CDT [facility] Hours Collected 24 hr 8:13 AM CDT [facility] Comment: Per 24h calculations are provided to aid interpretation for collections with a duration of 24 hours and an average daily urine volume. For specimens with notable deviations in collection time or volume, ratios of analytes to a corresponding urine creatinine concentration may assist in result interpretation. Citric Acid Urine - Per Volume 498 mg/L 04/26/2024 8:13 AM CDT [facility] Citric Acid Urine - Per 24H 1195 320 - 1240 mg/d 04/26/2024 8:13 AM T [facility] [employer] Urine URINE SPECIMEN COLLECTION, 24 HOURS / Unknown Non-blood Collection / Unknown 04/20/2024 9:21 AM CDT 04/20/2024 9:49 AM CDT Erin Brown APRN, CNP LAB_1 [facility] [employer] [address] [place] [address] [place] [address] * Intact PTH (04/20/2024 9:21 AM CDT) Intact PTH 94 10 - 100 pg/mL 04/20/2024 3:24 PM CDT [facility] Blood Venipuncture / Unknown 04/20/2024 9:21 AM CDT 04/20/2024 9:26 AM CDT Erin Brown APRN, CNP LAB_1 [facility] [address] * Uric Acid (04/20/2024 9:21 AM CDT) Uric Acid 6.5 3.5 - 7.2 mg/dL 04/20/2024 12:03 PM CDT [facility] Blood Venipuncture / Unknown 04/20/2024 9:21 AM CDT 04/20/2024 9:26 AM CDT Erin Maxwell Kevin CONNER CNP LAB_1 Performing Organization Address [facility] de Phone Number [facility] [address] [place] [address] * Basic Metabolic Panel (04/20/2024 9:21 AM CDT) Sodium 140 136 - 145 mmol/L 04/20/2024 12:03 PM [facility] Potassium 3.8 3.5 - 5.1 mmol/L 04/20/2024 12:03 PM [facility] Chloride 103 98 - 109 mmol/L 04/20/2024 12:03 PM [facility] CO2 27 20 - 29 mmol/L 04/20/2024 12:03 PM [facility] Anion Gap 10 6 - 16 mmol/L 04/20/2024 12:03 PM [facility] Calcium 10.1 8.4 - 10.4 mg/dL 04/20/2024 12:03 PM [facility] BUN 17 7 - 26 mg/dL 04/20/2024 12:03 PM [facility] Creatinine 0.86 0.73 - 1.18 mg/dL 04/20/2024 12:03 PM [facility] Glucose 82 70 - 100 mg/dL 04/20/2024 12:03 PM [facility] Comment:The given reference range is for the fasting state. Non-fasting reference range for glucose is 70 - 180 mg/dL. GFR, Estimated >60 >60 mL/min/1.7 3m2 04/20/2024 12:03 PM [facility] Hours Fasting 12.0 8 - 12 Hours 04/20/2024 12:03 PM [facility] Blood Venipuncture / Unknown 04/20/2024 9:21 AM CDT 04/20/2024 9:26 AM CDT Erin Maxwell Kevin CONNER CNP LAB_1 Performing Organization Address [facility] Co de Phone Number [facility] [address] [place] [address], [place] documented in this encounter Visit Diagnoses Diagnosis Calculus of upper urinary tract documented in this encounter Care Teams Waste Disposal Leakage Tester Relationship Specialty Start Date End Date Milan Aguiar MD [address] [place] [address] PCP - General Family Practice 05/02/23 documented as of this encounter
== END 2024-04-27 13:31 | disposition home or self-care (01) ==
LOC: NFLDREF 05-01 09:12
PROVIDERS: PCP Family Medicine; Referring Provider Family Medicine; Visit Provider Family Medicine
DX: C61 Malignant neoplasm of prostate (principal)
CPT/HCPCS: 84153

== ENCOUNTER 2025-01-08 12:46 | Outpatient (CLI) | payer MEDICARE, SELFPAY | END 2025-01-08 12:47 | disposition home or self-care (01) | LOC: LKVREF 12:47 | PROVIDERS: PCP Family Medicine; Visit Provider Family Medicine | DX: I10 Essential (primary) hypertension (principal); R53.83 Other fatigue; D72.819 Decreased white blood cell count, unspecified; G62.9 Polyneuropathy, unspecified; R73.03 Prediabetes | CPT/HCPCS: 80053; 80061 ==

== ENCOUNTER 2025-01-22 10:33 | Outpatient (CLI) | payer MEDICARE, SELFPAY | END 2025-01-22 10:34 | disposition home or self-care (01) | PROVIDERS: PCP Family Medicine; Visit Provider Family Medicine | DX: C61 Malignant neoplasm of prostate (principal); R53.83 Other fatigue; R53.81 Other malaise; I10 Essential (primary) hypertension; R73.03 Prediabetes; N52.9 Male erectile dysfunction, unspecified | CPT/HCPCS: 84443; 86140; 86618; 87468; 87469; 87484; 87798 ==